=== PATIENT | female | born 1975 | race Caucasian/White ===

== ENCOUNTER 2020-02-10 13:38 | Emergency (ER) | payer BC, SELFPAY ==
[2020-02-10 13:58] VITALS: BP 121/72; PULSE 78; RESP 19; TEMP 36.9; O2SAT 97; BMI 36.2
--- NOTE | 2020-02-10 14:40 | HMH.EDUTC ---
[facility] [place] Clinical Impression: Viral syndrome Disposition: Home, Self-Care Condition on Discharge: Good Instructions: DI for Viral Syndrome, Preventing the Spread of Coronavirus Discharge Instructions Additional Instructions: Drink plenty of fluids. Take tylenol or ibuprofen for pain or fever. Take the medications as directed. Follow up with your regular doctor. GO TO THE ER FOR ANY WORSENING SYMPTOMS FOLLOW THE DIRECTIONS ON THE COVID-19 HAND OUT THAT WE GAVE YOU REGARDING SELF-ISOLATION UNTIL YOU KNOW YOUR COVID-19 RESULTS Prescriptions: Ondansetron [Zofran 4mg ODT] 4 mg PO Q8HP PRN #12 tab.rapdis PRN Reason: Nausea Transmission Status: Received by [facility] # Azithromycin [Z-Steve 250mg Tab*] 250 mg PO UD DOSE PK #6 tab Transmission Status: Received by [facility] # Referrals: Gio Gunter [Primary Care Provider] - Forms: Work/School Release Time of Disposition: 14:44 Medical Decision Making - Medical Records Medical records reviewed: No: I reviewed the patient's medical records. - Bereket Inquiry Pt receiving controlled substance: No Vital Signs: 02/10/20 13:58 02/10/20 14:51 Temperature 98.4 F 98.4 F Temperature Source Oral Pulse Rate 78 Pulse Rate [Right Brachial] 78 Respiratory Rate 19 19 Blood Pressure 121/72 Blood Pressure [Right Arm] 121/72 Blood Pressure Mean [Right Arm] 88 Blood Pressure Source [Right Arm] Automatic Cuff Blood Pressure Position [Right Arm] Sitting 02 Sat by Pulse Oximetry 97 Oxygen Delivery Method Room Air - Lab Data Lab results reviewed: Yes: I reviewed the patient's lab results. Orders (Tests/Meds): ED MEDICATIONS Discontinued Medications Generic Name Dose Route Start Last Admin Trade Name Freq PRN Reason Stop Dose Admin Ondansetron HCl 4 mg 02/10/20 14:43 Zofran 4mg Odt SL 02/10/20 14:44 ONCE ONE ORDERS Category Date Time Status Coronavirus 19 Swab (OUTPT) Routine Lab 02/10/20 14:08 Received [facility] [place] H[place] - General Stated complaint: nausea, diarrhea, mucsle pain Time Seen by Provider: 02/10/20 14:40 Mode of Arrival: Ambulatory Source of Information: Patient Limitations: No Limitations Description of Symptoms (Recalled from Triage Doc. by RN): PATIENT C/O COUGH, BODY ACHES, FATIGUE, NAUSEA, DIARRHEA SINCE YESTERDAY HEENT Symptoms (Recalled from RN notes): No Resp Symptoms (Recalled from RN notes): Yes Skin Symptoms (Recalled from RN notes): No MS Symptoms (Recalled from RN notes): No Functional Status (Recalled from RN notes): WNL - History of Present Illness Provider Complaint: She c/o chilling, body aches, and feeling very bad since yesterday morning. 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 - Related Data Home Medications Medication Instructions Recorded Confirmed Sertraline HCl [Zoloft 100mg 100 mg PO DAILY 02/10/20 02/10/20 tablet] Previous Rx's Medication Instructions Recorded Azithromycin [Z-Steve 250mg Tab*] 250 mg PO UD DOSE PK #6 tab 02/10/20 Ondansetron [Zofran 4mg ODT] 4 mg PO Q8HP PRN #12 tab.rapdis 02/10/20 Allergies Allergy/AdvReac Type Severity Reaction Status Date / Time doxycycline Allergy Verified 08/05/18 18:03 - Worker's Comp Is this a Worker's Comp case?: No [facility] History - Hepatitis A Screen Drug use history?: No High risk sexual behaviors?: No History of sexually transmitted infection?: No Currently employed?: No Childcare worker?: No Do you have indoor plumbing?: Yes Do you have electricity?: Yes Attestation statement:: This patient has been screened for Hepatitis A risk factors. I have reviewed the patient's past medical history: Yes Laterality Cases: Bilateral: Tonsillectomy - Social History Alcohol Intake: never Occupational Status: other ROS Obtained: Yes All systems reviewed & no
[2020-02-10 14:51] VITALS: BP 121/72; PULSE 78; RESP 19; TEMP 36.9; O2SAT 97
[2020-02-10 19:02] LABS: UTC Strep Screen (Rapid) Negative (Negative)
== END 2020-02-10 14:55 | disposition home or self-care (01) ==
PROVIDERS: Emergency Provider Nurse Practitioner Family; PCP Family Medicine
DX: B34.9 Viral infection, unspecified (principal); Z20.828 Contact with and (suspected) exposure to other viral communicable diseases; F33.1 Major depressive disorder, recurrent, moderate; Z79.899 Other long term (current) drug therapy; Z90.09 Acquired absence of other part of head and neck
CPT/HCPCS: 87880; 99202; U0003

== ENCOUNTER 2021-02-22 18:39 | Emergency (ER) | payer BC, SELFPAY ==
[2021-02-22 21:57] VITALS: BP 0/0; PULSE 0; RESP 0; TEMP -17.7; TEMP 0
== END 2021-02-22 21:58 | disposition left against medical advice (07) ==
LOC: UTC 18:49
PROVIDERS: Emergency Provider Physician Assistant; PCP Family Medicine
DX: Z53.21 Procedure and treatment not carried out due to patient leaving prior to being seen by health care provider (principal)

== ENCOUNTER 2021-06-14 14:21 | Emergency (ER) | payer BC, SELFPAY ==
[2021-06-14 16:46] VITALS: BP 113/76; PULSE 74; RESP 20; TEMP 36.5; O2SAT 100; BMI 35.3
[2021-06-14 17:13] LABS: UTC Influenza A Antigen Negative (Negative)
[2021-06-14 17:14] LABS: UTC Strep Screen (Rapid) Negative (Negative)
[2021-06-14 17:14] LABS: UTC Influenza B Antigen Negative (Negative)
--- NOTE | 2021-06-14 17:24 | HMH.EDUTC ---
[facility] [place] Disposition Clinical Impression: Bronchitis Pharyngitis Qualifiers: Pharyngitis/tonsillitis etiology: unspecified etiology Qualified Code(s): J02.9 - Acute pharyngitis, unspecified Disposition: Home, Self-Care Condition on Discharge: Good Instructions: DI for Strep Throat, DI for COVID-19 (Suspected or Confirmed ), Preventing the Spread of Coronavirus Discharge Instructions Additional Instructions: Drink plenty of fluids. Take tylenol or ibuprofen for pain or fever. Take the medications as directed. Follow up with your regular doctor. GO TO THE ER FOR ANY WORSENING SYMPTOMS Quarantine until you know the results of your covid-19 test. If it is positive, the health department should call you and give you further instructions about your length of Quarantine and other things. Notify your school or workplace of your results and follow their instructions regarding return to work/school. The cough medication (promethazine dm) will make you drowsy, so don't drive or operate heavy machinery after taking it. Prescriptions: Promethazine/Dextromethorphan [Promethazine-Dm Syrup] 5 ml PO Q6HP PRN #240 ml PRN Reason: Cough Transmission Status: Received by [id number] methylPREDNISolone [Medrol] 4 mg PO DIRECTED 6 Days #21 packet Transmission Status: Received by [id number] Azithromycin [Z-Steve 250mg Tab*] 250 mg PO UD DOSE PK #6 tab Transmission Status: Received by [id number] Referrals: Gio Gunter JR, MD [Primary Care Provider] - Time of Disposition: 17:39 Medical Decision Making - Medical Records Medical records reviewed: No: I reviewed the patient's medical records. - Bereket Inquiry Pt receiving controlled substance: No Vital Signs: 06/14/21 16:46 06/14/21 17:48 Temperature 97.7 F 97.7 F Temperature Source Temporal Artery Scan Pulse Rate 74 Pulse Rate [Left] 74 Respiratory Rate 20 18 Blood Pressure 113/76 Blood Pressure [Right Arm] 113/76 Blood Pressure Mean [Right Arm] 88 02 Sat by Pulse Oximetry 100 - Lab Data Lab results reviewed: Yes: I reviewed the patient's lab results. Lab Results 06/14/21 16:48: Strep Scn [facility] Negative 06/14/21 17:02: Influenza Type A Ag Negative, Influenza Type B Ag Negative 06/14/21 17:44: Chlamy pneumoniae PCR Not detected, Adenovirus (PCR) Not detected, B. pertussis DNA (PCR) Not detected, Coronavirus OC43 (PCR) Not detected, Coronavirus HKU1 (PCR) Not detected, Coronavirus 229E (PCR) Not detected, SARS-CoV-2 (PCR) Not detected, Coronavirus NL63 (PCR) Not detected, Human Metapneumovir PCR Not detected, Influenza A (H1) PCR Not detected, Influ A (H1N1/09) PCR Not detected, Influenza A (H3) PCR Not detected, Influenza Type A (PCR) Not detected, Influenza Type B (PCR) Not detected, M. pneumoniae (PCR) Not detected, Parainfluenza 1 (PCR) Not detected, Parainfluenza 2 (PCR) Not detected, Parainfluenza 3 (PCR) Not detected, Parainfluenza 4 (PCR) Not detected, RSV (PCR) Not detected, Entero/Rhino (PCR) Detected A Orders (Tests/Meds): ORDERS Category Date Time Status Strep Screen Confirmation Routine Micro 06/14/21 16:48 Received [facility] [place] HPI - General Stated complaint: sore throat,cough Time Seen by Provider: 06/14/21 17:24 Mode of Arrival: Ambulatory Source of Information: Patient Limitations: No Limitations Description of Symptoms (Recalled from Triage Doc. by RN): pt c/o fever, chills, congestion, sore throat, cough, myalgia and a DOWNEY. x2 days. pt wants a flu/strep/covid swab. HEENT Symptoms (Recalled from RN notes): Yes (congestion, sore throat and DOWNEY) Resp Symptoms (Recalled from RN notes): Yes (cough) Skin Symptoms (Recalled from RN notes): No MS Symptoms (Recalled from RN notes): No Functional Status (Recalled from RN notes): wnl - History of Present Illness Provider Complaint: She states that for the past 3 days she has had body aches, a cough, chest congestion and a very sore throat.
[2021-06-14 17:48] VITALS: BP 113/76; PULSE 74; RESP 18; TEMP 36.5
[2021-06-14 17:54] LABS: Adenovirus,PCR Not Detected (NotDetected); Bordetella Pertussis Not Detected (NotDetected); Chlamydophila Pneumoniae, PCR Not Detected (NotDetected); Coronavirus 19, PCR Not Detected (NotDetected); Coronavirus 229E Not Detected (NotDetected); Coronavirus NL63 Not Detected (NotDetected); Coronavirus OC43 Not Detected (NotDetected); Coronovirus HKU1,PCR Not Detected (NotDetected); Human Metapneumovirus Not Detected (NotDetected); Influenza A, PCR Not Detected (NotDetected); Influenza AH1, 2009 Not Detected (NotDetected); Influenza AH1, PCR Not Detected (NotDetected); Influenza AH3,PCR Not Detected (NotDetected); Influenza B, PCR Not Detected (NotDetected); Mycoplasma Pneumoniae, PCR Not Detected (NotDetected); Parainfluenza 1, PCR Not Detected (NotDetected); Parainfluenza 2, PCR Not Detected (NotDetected); Parainfluenza 3, PCR Not Detected (NotDetected); Parainfluenza 4, PCR Not Detected (NotDetected); Respiratory Syncytial Virus Not Detected (NotDetected)
[2021-06-14 19:40] LABS: Rhinovirus/Enterovirus Detected (NotDetected)
== END 2021-06-14 17:50 | disposition home or self-care (01) ==
PROVIDERS: Emergency Provider Nurse Practitioner Family; PCP Family Medicine
DX: J20.9 Acute bronchitis, unspecified (principal); Z20.822 Contact with and (suspected) exposure to COVID-19
CPT/HCPCS: 87581; 87632; 87798; 87804; 87880; 99203; C9803; G0463; U0003; U0005

== ENCOUNTER 2021-09-07 13:26 | Emergency (ER) | payer BC, SELFPAY ==
[2021-09-07 15:10] VITALS: BP 109/72; PULSE 93; RESP 16; TEMP 36.9; O2SAT 99; BMI 37.2
--- NOTE | 2021-09-07 15:39 | HMH.EDUTC ---
[facility] [place] Impression: Sinusitis Qualifiers: Sinusitis location: unspecified location Chronicity: acute Recurrence: non-recurrent Qualified Code(s): J01.90 - Acute sinusitis, unspecified Disposition: Home, Self-Care Condition on Discharge: Good Instructions: DI for Sinusitis Additional Instructions: Drink plenty of fluids. Take tylenol or ibuprofen for pain or fever. Take the medications as directed. Follow up with your regular doctor. GO TO THE ER FOR ANY WORSENING SYMPTOMS Don't start the oral steroids until tomorrow, since you had the shot here today. Prescriptions: Ondansetron [Zofran 4mg ODT] 4 mg PO Q8HP PRN #20 tab PRN Reason: Nausea Transmission Status[id number] methylPREDNISolone [Medrol] 4 mg PO DIRECTED 6 Days #21 packet Transmission Status: [id number] Azithromycin [Z-Steve 250mg Tab*] 250 mg PO UD DOSE PK #6 tab Transmission Status: [id number] Referrals: Gio Gunter JR, MD [Primary Care Provider] - Forms: Work/School Release Time of Disposition: 15:57 Medical Decision Making - Medical Records Medical records reviewed: No: I reviewed the patient's medical records. - Bereket Inquiry Pt receiving controlled substance: No Vital Signs: 09/07/21 15:10 09/07/21 15:58 Temperature 98.4 F 98.4 F Temperature Source Oral Pulse Rate 93 H Pulse Rate [Right Brachial] 93 H Respiratory Rate 16 16 Blood Pressure 109/72 L Blood Pressure [Right Arm] 109/72 L Blood Pressure Mean [Right Arm] 84 Blood Pressure Source [Right Arm] Automatic Cuff Blood Pressure Position [Right Arm] Sitting 02 Sat by Pulse Oximetry 99 Oxygen Delivery Method Room Air - Lab Data Lab results reviewed: Yes: I reviewed the patient's lab results. Orders (Tests/Meds): ED MEDICATIONS Discontinued Medications Generic Name Dose Route Start Last Admin Trade Name Freq PRN Reason Stop Dose Admin Ceftriaxone Sodium 1 gm 09/07/21 15:48 09/07/21 15:57 Ceftriaxone 1gm Vial IM 09/07/21 15:49 1 gm ONCE ONE Administration Lidocaine HCl 0 ml 09/07/21 15:48 09/07/21 15:57 Lidocaine 1% 5ml Pf Vial IM 09/07/21 15:49 2 ml ONCE ONE Administration Methylprednisolone Sodium Succinate 125 mg 09/07/21 15:48 09/07/21 15:57 Methylprednisolone Sod Succ 125mg Vial IM 09/07/21 15:49 125 mg ONCE ONE Administration [facility] [place] - General Stated complaint: dizziness, fever, h/a, congestion Time Seen by Provider: 09/07/21 15:39 Mode of Arrival: Ambulatory Source of Information: Patient Limitations: No Limitations Description of Symptoms (Recalled from Triage Doc. by RN): PATIENT C/O DIZZINESS, CONGESTION, FACE PAIN, HEADACHE, AND RIGHT ARM PAIN HEENT Symptoms (Recalled from RN notes): Yes Resp Symptoms (Recalled from RN notes): No Skin Symptoms (Recalled from RN notes): No MS Symptoms (Recalled from RN notes): No Functional Status (Recalled from RN notes): WNL - History of Present Illness Provider Complaint: She states that for the past 3 days she has had worsening sinus congestion and sinus drainage. She thinks that she has a sinus infection. - Related Data Previous Rx's Medication Instructions Recorded Azithromycin [Z-Steve 250mg Tab*] 250 mg PO UD DOSE PK #6 tab 09/07/21 Ondansetron [Zofran 4mg ODT] 4 mg PO Q8HP PRN #20 tab 09/07/21 methylPREDNISolone [Medrol] 4 mg PO DIRECTED 6 Days #21 09/07/21 packet Allergies Allergy/AdvReac Type Severity Reaction Status Date / Time doxycycline Allergy Verified 08/05/18 18:03 - Worker's Comp Is this a Worker's Comp case?: No [facility] History - Hepatitis A Screen Drug use history?: No High risk sexual behaviors?: No History of sexually transmitted infection?: No Currently employed?: No Childcare worker?: No Do you have indoor plumbing?: Yes Do you have electricity?: Yes Attestation statement:: This patient has b
[2021-09-07 15:58] VITALS: BP 109/72; PULSE 93; RESP 16; TEMP 36.9; O2SAT 99
== END 2021-09-07 16:10 | disposition home or self-care (01) ==
PROVIDERS: Emergency Provider Nurse Practitioner Family; PCP Family Medicine
DX: J01.90 Acute sinusitis, unspecified (principal)
CPT/HCPCS: 96372; 99213; G0463; J0696

== ENCOUNTER 2022-02-27 16:52 | Emergency (ER) | payer BC, SELFPAY ==
[2022-02-27 17:10] VITALS: BP 120/66; PULSE 80; RESP 18; TEMP 36.7; O2SAT 98; BMI 35.0
--- NOTE | 2022-02-27 17:19 | EXP.UTC ---
Discharge Plan Disposition Patient Disposition: Home, Self-Care Condition: Good Prescriptions Prescriptions: New retmjwwvdwzqohz-npwusdffk-WV [Bromfed DM] 2-30-10 mg/5 mL syrup 10 ml PO Q6H PRN (Reason: cold symptoms) Qty: 200 0RF No Action sertraline 50 mg tablet 150 mg PO DAILY Label Comments: TAKE 3 TABLETS BY MOUTH ONCE DAILY Referrals Follow up/Referrals: Gio Gunter JR, MD [Primary Care Provider] - See instructions Clinical Impressions Clinical Impression: Acute upper respiratory infection Instructions Patient Instructions: DI for Viral Upper Respiratory Infection -- Adult Discharge ED Provider: Anahy Clark [facility] [place] General Stated complaint: Sore throat Time Seen by Provider: 02/27/22 17:19 History of Present Illness Provider Complaint: Pt relates that for the last few days she has had a cough and sore throat. She states she has not taken anything for her symptoms. She denies any reflux symptoms or taking anything for her symptoms. Pt states she had done 3 test for Covid and they were all negative. Related Data Home Medications Medication Instructions Recorded Confirmed sertraline 50 mg tablet 150 mg PO DAILY Anxiety 02/27/22 02/27/22 Previous Rx's Medication Instructions Recorded wgirvamnsicbzcp-hsgerefiqgjgdim-MK 10 ml PO Q6H PRN cold symptoms 02/27/22 2 mg-30 mg-10 mg/5 mL oral syrup #200 mL (Bromfed DM) Allergies Allergy/AdvReac Type Severity Reaction Status Date / Time doxycycline Allergy Verified 08/05/18 18:03 [facility] Medical History (Updated 02/27/22 @ 17:31 by Anahy Clark APRN) Anxiety Depression Ovarian cyst Surgical History (Updated 02/27/22 @ 17:19 by Kyara Mejias RN) History of section History of cholecystectomy History of tonsillectomy Hx of arthroscopy of knee Social History Smoking Status: Unknown if ever smoked alcohol intake: never current occupational status: other Travel in the last 8 weeks: None ROS Obtained: Yes All systems reviewed & no additional complaints except as documented Constitutional Constitutional: Reports headache(s) ENT Ears, Nose, Mouth, and Throat: Reports headache(s), Reports post nasal drip, Reports sinus pressure and Reports sore throat Cardiovascular Cardiovascular: Reports system reviewed and no additional complaints, except as documented Respiratory Respiratory: Reports as per HPI and Reports cough Comments: states that she will occasionally cough up something but she does not look at it. Gastrointestinal Gastrointestingal: Reports system reviewed and no additional complaints, except as documented Musculoskeletal Musculoskeletal: Reports system reviewed and no additional complaints, except as documented Integumentary/Breasts Skin/Breast: Reports system reviewed and no additional complaints, except as documented Neurologic Neurologic: Reports headache(s) Physical Exam General General appearance: alert and in no apparent distress Eye Eye exam: Present normal appearance ENT ENT exam: Present mucous membranes moist Expanded ENT Exam External ear exam: Present normal external inspection Nasal speculum exam: Bilateral: normal Mouth exam: Present normal external inspection Teeth exam: Present normal inspection Throat exam: Present other Comment: post nasal drainage noted Chest Chest inspection: Present normal inspection Respiratory Respiratory exam: Present normal lung sounds bilaterally and respiratory distress Cardiovascular Cardiovascular exam: Present regular rate and normal rhythm Abdominal Exam Abdominal exam: Present soft and normal bowel sounds Neurological Exam Neurological exam: Present alert Psychiatric Psychiatric exam: Present normal affect and normal mood Medical Decision Making Bereket Inquiry Pt receiving controlled substance: No Bereket was queried for this patient: No
[2022-02-27 17:30] VITALS: BP 120/66; PULSE 80; RESP 18; TEMP 36.7; O2SAT 98
[2022-02-27 17:40] LABS: UTC Strep Screen (Rapid) Negative (Negative)
== END 2022-02-27 17:34 | disposition home or self-care (01) ==
PROVIDERS: Nurse Practitioner; Emergency Provider Nurse Practitioner Family; PCP Family Medicine
DX: J06.9 Acute upper respiratory infection, unspecified
CPT/HCPCS: 87880; 99212; G0463

== ENCOUNTER 2022-10-13 12:11 | Emergency (ER) | payer OTHER, BC, SELFPAY ==
[2022-10-13] VITALS (7 sets, daily range): BP systolic 93–138; BP diastolic 57–82; PULSE 71–92; RESP 17–18; TEMP 36.8–37; O2SAT 97–99; BMI 40.7
--- NOTE | 2022-10-13 12:04 | ECG_ITS ---
APPROVED REPORT Exam: Resting ECG HR:75 bpm ECG Measurements Heart Rate 75 AXES OK 174 P 56 QRSd 76 QRS 45 QT 345 T 44 QTc 374 Conclusion SINUS RHYTHM NORMAL ECG UNCONFIRMED REPORT Electronically signed by : Tim Manzo MD 10/15/2022 14:25:35
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
--- NOTE | 2022-10-13 12:10 | PC.NURSE ---
EKG performed at this time
--- NOTE | 2022-10-13 12:13 | PC.NURSE ---
radiology at bedside
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
--- NOTE | 2022-10-13 12:18 | PC.NURSE ---
at bedside for pt evaluation
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
--- NOTE | 2022-10-13 12:31 | PC.NURSE ---
pt to CT scan via stretcher
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
[2022-10-13 12:38] LABS: Basophils % 0.7 % (0.1-2.0); Chloride 105 mmol/L (98-107); Eosinophils # 0.2 K/mm3 (0.0-0.4); Hematocrit 41.4 % (37.0-47.0); Hemoglobin 13.6 g/dL (12.2-16.2); Lymphocytes # 1.7 K/mm3 (0.7-4.5); Mean Corpuscular Hemoglobin 30.4 pg (27.0-31.2); Mean Corpuscular Volume 92.3 fl (81-99); Mean Platelet Volume 7.7 fl (7.4-10.4); Monocytes # 0.2 K/mm3 (0.1-1.0); Monocytes % 4.6 % (1.7-9.3); Neutrophils # 3.2 K/mm3 (1.8-7.8); Neutrophils % 60.7 % (37.0-80.0); Platelet Count 201 K/mm3 (142-424); Red Blood Count 4.48 M/mm3 (4.20-5.40); Red Cell Distribution Width 13.8 % (11.5-17.5); White Blood Count 5.3 K/mm3 (4.8-10.8)
[2022-10-13 12:39] LABS: Potassium 4.3 mmoL/L (3.5-5.1); Sodium 136 mmol/L (136-145)
[2022-10-13 12:41] LABS: Activated Partial Thrombo Time 26.1 seconds (22.8-30.6); Alanine Aminotransferase 27 U/L (12-78); Alkaline Phosphatase 83 U/L (38-126); Aspartate Amino Transferase 40 U/L (14-36); Bilirubin,Total 0.5 mg/dl (0.2-1.3); Blood Urea Nitrogen 15 mg/dl (7-17); Creatinine Clearance Estimated 174 mL/min (50-200); Estimated Glomerular Filt Rate 90 ml/min (>60); GFR (African American) 109 ML/MIN (>60); INR 0.86 (0.9-1.1); Prothrombin Time 9.4 seconds (10.1-12.5)
[2022-10-13 12:42] LABS: Albumin Level 4.4 g/dl (3.5-5.0); Albumin/Globulin Ratio 1.5 (1.1-1.8); Anion Gap 11.3 mEq/L (5-15); Calcium 8.5 mg/dl (8.4-10.2); Carbon Dioxide 24 mmol/L (22.0-30.0); Globulin 2.9 g/dL (1.3-3.2); Glucose 108 mg/dl (74-100); Total Protein,Serum 7.3 g/dl (6.3-8.2)
[2022-10-13 12:53] LABS: Troponin I < 0.01 ng/ml (0.00-0.034)
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
== END 2022-10-13 14:47 | disposition home or self-care (01) ==
PROVIDERS: Emergency Provider Emergency Medicine; PCP Family Medicine
DX: S01.511A Laceration without foreign body of lip, initial encounter (principal); R51.9 Headache, unspecified; M79.604 Pain in right leg; M79.605 Pain in left leg; V79.49XA Driver of bus injured in collision with other motor vehicles in traffic accident, initial encounter
CPT/HCPCS: 12013; 70450; 70486; 70496; 70498; 71045; 71275; 72125; 72128; 72131; 72170; 73590; 74174; 80053; 84484; 85025; 85610; 85730; 93005; 96360; 96374; 96375; 99285; J2405; Q9967

== ENCOUNTER 2022-10-15 10:51 | Emergency (ER) | payer OTHER, BC, SELFPAY ==
[2022-10-15 10:55] VITALS: BP 129/70; PULSE 88; RESP 20; TEMP 36.8; O2SAT 96; BMI 39.1
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
[2022-10-15 13:06] VITALS: BP 129/70; PULSE 88; RESP 20; TEMP 36.8; O2SAT 96
== END 2022-10-15 13:09 | disposition home or self-care (01) ==
PROVIDERS: Emergency Provider Physician Assistant; PCP Family Medicine
DX: S80.01XA Contusion of right knee, initial encounter (principal); V79.49XA Driver of bus injured in collision with other motor vehicles in traffic accident, initial encounter
CPT/HCPCS: 73562; 99212; 99214; G0463

== ENCOUNTER 2023-03-13 11:52 | Emergency (ER) | payer BC, SELFPAY ==
[2023-03-13 12:00] VITALS: BP 134/87; PULSE 101; RESP 18; TEMP 36.9; O2SAT 98; BMI 41.0
--- NOTE | 2023-03-13 12:34 | EXP.UTC ---
Discharge Plan Disposition Patient Disposition: Home, Self-Care Condition: Good Prescriptions Prescriptions: New polymyxin B sulf-trimethoprim [Polytrim] 10,000 unit- 1 mg/mL drops 2 drp ophthalmic (eye) Q6H 7 Days Qty: 10 0RF Rx Instructions: both eyes while awake; do not exceed 6 doses in 24 hours ondansetron HCl 4 mg tablet 4 mg PO Q8H 4 Days Qty: 12 0RF No Action sertraline 50 mg tablet 150 mg PO DAILY Patient Comments: TAKE 3 TABLETS BY MOUTH ONCE DAILY meloxicam 7.5 mg tablet 7.5 mg PO DAILY Patient Comments: TAKE 1 TABLET BY MOUTH ONCE DAILY aripiprazole 5 mg tablet 5 mg PO DAILY Patient Comments: TAKE 1 TABLET BY MOUTH AT BEDTIME amitriptyline 25 mg tablet 25 mg PO DAILY Patient Comments: TAKE 1 TABLET BY MOUTH ONCE DAILY AT BEDTIME Referrals Follow up/Referrals: Femi Soriano MD [Primary Care Provider] - See instructions Activity Restrictions/Add. Instructions Additional Instructions/Restrictions: *Monitor Temp, Over the counter Motrin or Tylenol as directed/as needed Tylenol every 4 hours and Motrin every 6 hours (as long as your family doctor has told you that you can take it) for fever or pain. and straight to ER if unable to lower temp less than 101.0 after medication given *Warm salt water gargles may help to soothe the throat *Throat Lozenges? *Warm fluids like tea with honey may help to soothe the throat? *Sleep elevated *Humidifier/Vaporizer Follow up IMMEDIATELY for new or worsening symptoms or no Noticeable improvement over the next 48-72 hours. 911 for difficulty breathing or swallowing You were tested for today for COVID19 your test result should be back in the next 24 hours You may check your results on the [facility] [place]: online [employer] [facility] for your results Clinical Impressions Clinical Impression: Conjunctivitis Qualifiers: Conjunctivitis type: unspecified Laterality: left Qualified Code(s): H10.9 - Unspecified conjunctivitis Stand Alone Forms Stand Alone Forms: Work/School Release Instructions Patient Instructions: DI for Viral Syndrome, Nausea and Vomiting-Adult, Diarrhea Discharge ED Provider: Noemy Boykin [place] HPI General Stated complaint: nausea, diarrhea, cough, Lt eye drainage Mode of Arrival: Ambulatory Source of Information: Patient Limitations: No Limitations Time Seen by Provider: 03/13/23 12:34 Description of Symptoms (Recalled from Triage Doc. by RN): Covid/ flu symptoms. Watery and crusty left eye. 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 States that she has been having cough, body aches and N/V/D States that she also thinks she may have pink eye States that she has been having drainage and matting in her left eye so today she came in to get checked Related Data Home Medications Medication Instructions Recorded Confirmed sertraline 50 mg tablet 150 mg PO DAILY Anxiety 02/27/22 03/13/23 aripiprazole 5 mg tablet 5 mg PO DAILY Depression 10/15/22 03/13/23 meloxicam 7.5 mg tablet 7.5 mg PO DAILY WRIST PAIN 10/15/22 10/15/22 amitriptyline 25 mg tablet 25 mg PO DAILY Depression 03/13/23 03/13/23 Previous Rx's Medication Instructions Recorded ondansetron HCl 4 mg tablet 4 mg PO Q8H 4 days #12 tabs 03/13/23 polymyxin B sulfate 10,000 2 drp ophthalmic (eye) Q6H 7 days 03/13/23 unit-trimethoprim 1 mg/mL eye #10 mL drops (Polytrim) Allergies Allergy/AdvReac Type Severity Reaction Status Date / Time doxycycline Allergy Verified 03/13/23 12:16 Worker's Comp Is this a Worker's Comp case?: No [facility] Disclaimer: The information co
[2023-03-13 12:39] LABS: UTC Influenza A Antigen Negative (Negative)
[2023-03-13 12:40] LABS: UTC Influenza B Antigen Negative (Negative)
[2023-03-13 12:57] VITALS: BP 134/87; PULSE 101; RESP 18; TEMP 36.9; O2SAT 98
== END 2023-03-13 12:57 | disposition home or self-care (01) ==
PROVIDERS: Emergency Provider Nurse Practitioner; PCP Family Medicine
DX: H66.92 Otitis media, unspecified, left ear (principal); F41.9 Anxiety disorder, unspecified; F32.A Depression, unspecified
CPT/HCPCS: 87635; 87804; 99212; 99214; G0463

== ENCOUNTER → 2023-03-30 09:51 | Outpatient (CLI) | payer OTHER, SELFPAY ==
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
--- NOTE | 2023-03-30 10:09 | IR_ITS ---
FINAL REPORT CLINICAL HISTORY: KNEE PAIN Rt knee arthrogram before MR Fluoro TIme: 0:45min 5.12 mGy FINDINGS: Arthrogram Right knee injection for MRI arthrogram HISTORY: Right knee pain. PROCEDURE: After informed consent was obtained, a time-out was performed. Utilizing local anesthesia and sterile technique, with direct fluoroscopic guidance, access to the joint was obtained . A small amount of contrast was injected to confirm needle tip location. Additional gadolinium contrast was injected. IMPRESSION: Status post injection for MRI arthrogram without immediate complication. Please see MRI report. Fluoroscopy time: 0.45 minutes Radiation exposure in reference air kerma: 5.12 Films reviewed , interpreted and dictated by Dr. De La Paz Transcribed by Yuri Cantu PA-C. Reviewed, Interpreted and Dictated by Vijay De La Paz III, MD Transcribed by LETHA Horne Authenticated and [facility]
== END ==
PROVIDERS: PCP Orthopaedic Surgery; Visit Provider Orthopaedic Surgery
DX: M25.561 Pain in right knee (principal)
CPT/HCPCS: 73580; 73722; A9576; Q9967

== ENCOUNTER 2023-10-03 11:40 | Emergency (ER) | payer BC, SELFPAY ==
[2023-10-03 12:05] VITALS: BP 136/66; PULSE 96; RESP 19; TEMP 36.8; O2SAT 98; BMI 42.2
--- NOTE | 2023-10-03 12:24 | ED_ITS ---
Discharge Plan Disposition Patient Disposition: Home, Self-Care Condition: Good Prescriptions Prescriptions: New azithromycin [Zithromax Z-Steve] 250 mg tablet See Rx Instructions .ROUTE .COMPLEX 5 Days Qty: 6 0RF Rx Instructions: For 250 mg dose pack: take 500 mg today (day 1), then 250 mg for 4 days (days 2-5) prednisone 20 mg tablet 20 mg PO BID 5 Days Qty: 10 0RF benzonatate 100 mg capsule 100 mg PO TID PRN (Reason: cough) Qty: 30 0RF guaifenesin [Mucinex] 600 mg tablet extended release 12hr 1,200 mg PO BID PRN (Reason: cough) Qty: 20 0RF Proair Digihaler 90 mcg/actuation aero powdr breath act w/sensor 1 - 2 inh inhalation Q6H PRN (Reason: shortness of breath or wheezing) Qty: 1 0RF No Action sertraline 50 mg tablet 150 mg PO DAILY Patient Comments: TAKE 3 TABLETS BY MOUTH ONCE DAILY aripiprazole 5 mg tablet 5 mg PO DAILY Patient Comments: TAKE 1 TABLET BY MOUTH AT BEDTIME amitriptyline 25 mg tablet 25 mg PO DAILY Patient Comments: TAKE 1 TABLET BY MOUTH ONCE DAILY AT BEDTIME Referrals Follow up/Referrals: Provider,Referral, MD [Primary Care Provider] - See instructions Activity Restrictions/Add. Instructions Additional Instructions/Restrictions: * Start antibiotic today. Be sure to complete entire prescription even if feeling better * Monitor temp. Tylenol every 4 hours as needed and / or ibuprofen every 6 hours as needed ( As long as your primary care physician has told you that it ok to take both. For fever/aches/pains ER if no less than 101 despite Tylenol or Motrin * Humidifier/vaporizer or hot steamy shower * Inhaler every 4-6 hours as needed like we discussed. If unsure how to use it, ask pharmacist to demonstrate how. Should help open airways and improve cough, wheezing, and shortness of breath * Mucinex during the day for your cough and cough suppressant only at night. Be sure to drink lots of water. Insurance may not cover a prescriptions for mucinex. Might be cheaper to get 400mg tablets and take 2 tablet in the morning, mid-day and evening with lots of water. *Tessalon Perles will not cause drowsiness but use at bedtime to help stop cough so that you may get some rest. *Start steroid tomorrow Helps with inflammation therefore, cough and wheezing. Follow directions on the package. Reviewed side effects. Patient reports taking them before. Follow up IMMEDIATELY for new or worsening of symptoms OR no noticeable improvement over the next 48-72 hours. 911 immediately for any life threatening symptoms such as chest pain or difficulty breathing Clinical Impressions Clinical Impression: Bronchitis Instructions Patient Instructions: Acute Bronchitis, Cough Discharge ED Provider: Noemy Boykin [facility] HPI General Stated complaint: congestion, cough Mode of Arrival: Ambulatory Source of Information: Patient Limitations: No Limitations Time Seen by Provider: 10/03/23 12:25 Description of Symptoms (Recalled from Triage Doc. by RN): Pt's symptoms are cough, congestion, wheezing, and rib pain with cough. HEENT Symptoms (Recalled from RN notes): Yes Resp Symptoms (Recalled from RN notes): No Skin Symptoms (Recalled from RN notes): No MS Symptoms (Recalled from RN notes): No Functional Status (Recalled from RN notes): n/a History of Present Illness Provider Complaint: Patient states that she feels like she may have bronchitis States that she has been having wheezing at times, cough, congestion and pain in ribs at times with coughing States that this morning she started with pain in her left ear and coughing worse at times when she is up moving around so she came in to get checked Related Data Home Medications Medication Instructions Recorded Confirmed sertraline 50 mg tablet 150 mg PO DAILY Anxiety 02/27/22 10/03/23 aripiprazole 5 mg tablet 5 mg PO DAILY Depression 10/15/22 10/03/23 amitriptyline 25 mg tablet 25 mg PO DAILY Depression 03/13/23 10/03/23 Previous Rx's Medication Instructions Recorded albuterol sulfate 90 mcg/actuation 1 - 2 inh inhalation Q6H PRN 10/03/23 breath activated powder shortness of breath or wheezing #1 inhaler,sensor (Proair Digihaler) ea azithromycin 250 mg tablet See Rx Instructions PO .COMPLEX 5 10/03/23 (Zithromax Z-Steve) days #6 tabs benzonatate 100 mg capsule 100 mg PO TID PRN cough #30 caps 10/03/23 guaifenesin 600 mg tablet, 1,200 mg (2 x 600 mg) PO BID PRN 10/03/23 extended release 12 hr (Mucinex) cough #20 tabs prednisone 20 mg tablet 20 mg PO BID 5 days #10 tabs 10/03/23 Allergies Allergy/AdvReac Type Severity Reaction Status Date / Time doxycycline Allergy Verified 10/03/23 12:19 Worker's Comp Is this a Worker's Comp case?: No [facility] Disclaimer: The information contained in this section may have been updated after the patient was seen, as this information can be updated by other users. Medical History (Updated 10/03/23 @ 12:33 by Noemy Boykin APRN) Ovarian cyst Depression Anxiety Surgical History Hx of arthroscopy of knee History of tonsillectomy History of section History of cholecystectomy Social History Smoking Status: Unknown if ever smoked alcohol intake: never current occupational status: other Travel in the last 8 weeks: None ROS Obtained: Yes All systems reviewed & no additional complaints except as documented and Yes Systems reviewed as appropriate & no additional complaints except as documented ENT Ears, Nose, Mouth, and Throat: Reports system reviewed and no additional complaints, except as documented, Reports as per HPI, Reports otalgia, Reports nasal congestion and Reports sinus pressure Cardiovascular Cardiovascular: Reports system reviewed and no additional complaints, except as documented and Reports as per HPI Respiratory Respiratory: Reports system reviewed and no additional complaints, except as documented, Reports as per HPI, Denies shortness of breath, Reports chest congestion, Reports cough and Reports pain with cough (at times) Physical Exam General General appearance: alert and in no apparent distress ENT ENT exam: Present mucous membranes moist Expanded ENT Exam TM/Canal exam: Bilateral TM: bulging Throat exam: Present other (Pharyngeal erythema noted with PND) Respiratory Respiratory exam: Present normal lung sounds bilaterally; Absent respiratory distress or wheezes Cardiovascular Cardiovascular exam: Present regular rate, normal rhythm and normal heart sounds Neurological Exam Neurological exam: Present alert, oriented X3 and normal gait Medical Decision Making [place] Inquiry Pt receiving controlled substance: No [place] was queried for this patient: No Vital Signs: 10/03/23 12:05 Temperature 98.3 F Temperature Source Oral Pulse Rate [Right Radial] 96 H Respiratory Rate 19 Blood Pressure [Right Arm] 136/66 Blood Pressure Mean [Right Arm] 89 Blood Pressure Source [Right Arm] Automatic Cuff Blood Pressure Position [Right Arm] Sitting 02 Sat by Pulse Oximetry 98 Oxygen Delivery Method Room Air Medical Decision Narrative: Discussed CXR and patient declined at this time
[2023-10-03] MEDS: METHYLPREDNISOLONE SOD SUCC 125MG VIAL 125 MG IM (12:43)
[2023-10-03] MEDS: LIDOCAINE 1% 5ML PF VIAL IM (12:43)
[2023-10-03] MEDS: cefTRIAXone 1GM VIAL 1 GM IM (12:43)
[2023-10-03 13:06] VITALS: BP 136/66; PULSE 96; RESP 19; TEMP 36.8; O2SAT 98
== END 2023-10-03 13:06 | disposition home or self-care (01) ==
PROVIDERS: Emergency Provider Nurse Practitioner
DX: J20.9 Acute bronchitis, unspecified (principal); R07.81 Pleurodynia; R06.2 Wheezing; R05.8 Other specified cough; H92.02 Otalgia, left ear
CPT/HCPCS: 96372; 99212; 99214; G0463; J0696

== ENCOUNTER 2024-03-28 08:09 | Emergency (ER) | payer BC, SELFPAY ==
[2024-03-28 08:35] VITALS: BP 125/59; PULSE 86; RESP 20; TEMP 36.8; O2SAT 95; BMI 34.4
[2024-03-28 08:45] LABS: UTC Influenza A Antigen Negative (Negative)
[2024-03-28 08:46] LABS: UTC Influenza B Antigen Negative (Negative)
--- NOTE | 2024-03-28 08:55 | ED_ITS ---
Discharge Plan Disposition Patient Disposition: Home, Self-Care Condition: Good Prescriptions Prescriptions: New azithromycin [Zithromax Z-Steve] 250 mg tablet See Rx Instructions .ROUTE .COMPLEX 5 Days Qty: 6 0RF Rx Instructions: For 250 mg dose pack: take 500 mg today (day 1), then 250 mg for 4 days (days 2-5) benzonatate 100 mg capsule 100 mg PO TID PRN (Reason: cough) Qty: 30 0RF methylprednisolone [Medrol (Steve)] 4 mg tablets,dose pack See Rx Instructions .Route .COMPLEX 6 Days Qty: 21 0RF Rx Instructions: taper pack; guaifenesin [Mucinex] 600 mg tablet extended release 12hr 1,200 mg PO BID PRN (Reason: cough) Qty: 20 0RF No Action sertraline 50 mg tablet 150 mg PO DAILY Patient Comments: TAKE 3 TABLETS BY MOUTH ONCE DAILY azithromycin [Zithromax Z-Steve] 250 mg tablet See Rx Instructions .ROUTE .COMPLEX 5 Days Qty: 6 0RF Rx Instructions: For 250 mg dose pack: take 500 mg today (day 1), then 250 mg for 4 days (days 2-5) prednisone 20 mg tablet 20 mg PO BID 5 Days Qty: 10 0RF benzonatate 100 mg capsule 100 mg PO TID PRN (Reason: cough) Qty: 30 0RF guaifenesin [Mucinex] 600 mg tablet extended release 12hr 1,200 mg PO BID PRN (Reason: cough) Qty: 20 0RF Proair Digihaler 90 mcg/actuation aero powdr breath act w/sensor 1 - 2 inh inhalation Q6H PRN (Reason: shortness of breath or wheezing) Qty: 1 0RF aripiprazole 5 mg tablet 5 mg PO DAILY Patient Comments: TAKE 1 TABLET BY MOUTH AT BEDTIME amitriptyline 25 mg tablet 25 mg PO DAILY Patient Comments: TAKE 1 TABLET BY MOUTH ONCE DAILY AT BEDTIME Referrals Follow up/Referrals: Femi Soriano MD [Primary Care Provider] - See instructions Activity Restrictions/Add. Instructions Additional Instructions/Restrictions: * Start antibiotic today. Be sure to complete entire prescription even if feeling better * Monitor temp. Tylenol every 4 hours as needed and / or ibuprofen every 6 hours as needed ( As long as your primary care physician has told you that it ok to take both. For fever/aches/pains ER if no less than 101 despite Tylenol or Motrin * Humidifier/vaporizer or hot steamy shower * Mucinex during the day for your cough and cough suppressant only at night. Be sure to drink lots of water. Insurance may not cover a prescriptions for mucinex. Might be cheaper to get 400mg tablets and take 2 tablet in the morning, mid-day and evening with lots of water. *Tessalon Perles will not cause drowsiness but use at bedtime to help stop cough so that you may get some rest. *Start steroid today. Helps with inflammation therefore, cough and wheezing. Follow directions on the package. Reviewed side effects. Patient reports taking them before. Follow up IMMEDIATELY for new or worsening of symptoms OR no noticeable improvement over the next 48-72 hours. 911 immediately for any life threatening symptoms such as chest pain or difficulty breathing Clinical Impressions Clinical Impression: Sinusitis Instructions Patient Instructions: Sinusitis, DI for Sinusitis Print Language Print Language: Armenian Discharge ED Provider: Noemy Boykin [facility] HPI General Stated complaint: fever, cough, sore throat, aches, chills Mode of Arrival: Ambulatory Source of Information: Patient Time Seen by Provider: 03/28/24 08:55 Description of Symptoms (Recalled from Triage Doc. by RN): flu like s/s, cough, congestin, chills, aches, headache HEENT Symptoms (Recalled from RN notes): Yes Resp Symptoms (Recalled from RN notes): Yes Skin Symptoms (Recalled from RN notes): No MS Symptoms (Recalled from RN notes): No Functional Status (Recalled from RN notes): WNL History of Present Illness Provider Complaint: Patient states that she hasnt been feeling well for over a week with body aches, headache, chills, sore throat, sinus pain and pressure and now feels like it may have moved into her chest states today she wasnt feeling any better so she came in to get checked Related Data Home Medications ?Medication ?Instructions ?Recorded ?Confirmed sertraline 50 mg tablet 150 mg PO DAILY Anxiety 02/27/22 10/03/23 aripiprazole 5 mg tablet 5 mg PO DAILY Depression 10/15/22 10/03/23 amitriptyline 25 mg tablet 25 mg PO DAILY Depression 03/13/23 10/03/23 Previous Rx's ?Medication ?Instructions ?Recorded albuterol sulfate 90 mcg/actuation 1 - 2 inh inhalation Q6H PRN 10/03/23 breath activated powder shortness of breath or wheezing #1 inhaler,sensor (Proair Digihaler) ea azithromycin 250 mg tablet See Rx Instructions PO .COMPLEX 5 10/03/23 (Zithromax Z-Steve) days #6 tabs benzonatate 100 mg capsule 100 mg PO TID PRN cough #30 caps 10/03/23 guaifenesin 600 mg tablet, 1,200 mg (2 x 600 mg) PO BID PRN 10/03/23 extended release 12 hr (Mucinex) cough #20 tabs prednisone 20 mg tablet 20 mg PO BID 5 days #10 tabs 10/03/23 azithromycin 250 mg tablet See Rx Instructions PO .COMPLEX 5 03/28/24 (Zithromax Z-Steve) days #6 tabs benzonatate 100 mg capsule 100 mg PO TID PRN cough #30 caps 03/28/24 guaifenesin 600 mg tablet, 1,200 mg (2 x 600 mg) PO BID PRN 03/28/24 extended release 12 hr (Mucinex) cough #20 tabs methylprednisolone 4 mg tablets in See Rx Instructions .Route 03/28/24 a dose pack (Medrol (Steve)) .COMPLEX 6 days #21 tabs Allergies Allergy/AdvReac Type Severity Reaction Status Date / Time doxycycline Allergy Verified 10/03/23 12:19 Worker's Comp Is this a Worker's Comp case?: No [facility] Disclaimer: The information contained in this section may have been updated after the patient was seen, as this information can be updated by other users. Medical History (Updated 03/28/24 @ 09:15 by Noemy Boykin APRN) Ovarian cyst Depression Anxiety Surgical History Hx of arthroscopy of knee History of tonsillectomy History of section History of cholecystectomy Social History Smoking Status: Unknown if ever smoked alcohol intake: never current occupational status: other Travel in the last 8 weeks: None ROS Obtained: Yes All systems reviewed & no additional complaints except as documented and Yes Systems reviewed as appropriate & no additional complaints except as documented Constitutional Constitutional: Reports system reviewed and no additional complaints, except as documented, Reports as per HPI, Reports body ache, Reports chills and Reports headache(s) ENT Ears, Nose, Mouth, and Throat: Reports system reviewed and no additional complaints, except as documented, Reports as per HPI, Reports headache(s), Reports sinus pain, Reports sinus pressure and Reports sore throat Cardiovascular Cardiovascular: Reports system reviewed and no additional complaints, except as documented and Reports as per HPI Respiratory Respiratory: Reports system reviewed and no additional complaints, except as documented, Reports as per HPI, Reports chest congestion and Reports cough Gastrointestinal Gastrointestingal: Reports system reviewed and no additional complaints, except as documented and as per HPI Neurologic Neurologic: Reports headache(s) Physical Exam General General appearance: alert and in no apparent distress ENT ENT exam: Present mucous membranes moist Expanded ENT Exam Nose exam: Present sinus tenderness Throat exam: Present other (Pharyngeal erythema noted with PND) Respiratory Respiratory exam: Present normal lung sounds bilaterally; Absent respiratory distress or wheezes Cardiovascular Cardiovascular exam: Present regular rate, normal rhythm and normal heart sounds Neurological Exam Neurological exam: Present alert, oriented X3 and normal gait Medical Decision Making Medical Records Screening: Per USPSTF and CDC recommendations, given the prevalence of disease in our region, it is our hospital?s policy to screen for HIV and viral Hepatitis for all patients aged 18 and over and those with ongoing risk factors. Bereket Inquiry Pt receiving controlled substance: No Bereket was queried for this patient: No Vital Signs: 03/28/24 08:35 Temperature 98.2 F Temperature Source Oral Pulse Rate [Left Radial] 86 Respiratory Rate 20 Blood Pressure [Left Arm] 125/59 L Blood Pressure Mean [Left Arm] 81 02 Sat by Pulse Oximetry 95 Lab Data Lab results reviewed: Yes I reviewed the patient's lab results. Lab Results 03/28/24 08:44: Influenza Type A Ag Negative, Influenza Type B Ag Negative
[2024-03-28 09:20] VITALS: BP 125/59; PULSE 86; RESP 20; TEMP 36.8; O2SAT 95
[2024-03-28 09:22] LABS: UTC Strep Screen (Rapid) Negative (Negative)
== END 2024-03-28 09:24 | disposition home or self-care (01) ==
PROVIDERS: Emergency Provider Nurse Practitioner; PCP Family Medicine
DX: J32.9 Chronic sinusitis, unspecified (principal); R50.9 Fever, unspecified; R05.9 Cough, unspecified; R09.81 Nasal congestion; R51.9 Headache, unspecified; M79.10 Myalgia, unspecified site; J02.9 Acute pharyngitis, unspecified
CPT/HCPCS: 87804; 87880; 99212; G0381

== ENCOUNTER 2024-06-06 14:28 | Emergency (ER) | payer OTHER, BC, SELFPAY ==
[2024-06-06 14:50] VITALS: BP 118/70; PULSE 79; RESP 19; TEMP 36.8; O2SAT 98; BMI 34.9
--- NOTE | 2024-06-06 15:02 | ED_ITS ---
Discharge Plan Disposition Patient Disposition: Home, Self-Care Condition: Good Prescriptions Prescriptions: No Action sertraline 50 mg tablet 150 mg PO DAILY Patient Comments: TAKE 3 TABLETS BY MOUTH ONCE DAILY ropinirole 0.5 mg tablet 0.5 mg PO HS Patient Comments: TAKE 1 TABLET BY MOUTH ONCE DAILY AT BEDTIME Wegovy 2.4 mg/0.75 mL pen injector 2.4 mg SQ WEEKLY Patient Comments: INJECT 1 SYRINGE SUBCUTANEOUSLY ONCE A WEEK Referrals Follow up/Referrals: Femi Soriano MD [Primary Care Provider] - See instructions Activity Restrictions/Add. Instructions Additional Instructions/Restrictions: Please return with any new or worsening symptoms. Clinical Impressions Clinical Impression: Headache Print Language Print Language: Bulgarian Discharge ED Provider: Matty Burkett [facility] General Chief complaint: Headache Stated complaint: headache Mode of Arrival: Ambulatory Source of Information: Patient Limitations: No Limitations Time Seen by Provider: 06/06/24 15:02 Description of Symptoms (Recalled from Triage Doc. by RN): PATIENT C/O HEADACHE, NAUSEA, NECK PAIN AND DIZZINESS X 4 DAYS HEENT Symptoms (Recalled from RN notes): Yes Resp Symptoms (Recalled from RN notes): No Skin Symptoms (Recalled from RN notes): No MS Symptoms (Recalled from RN notes): No Functional Status (Recalled from RN notes): WNL History of Present Illness Provider Complaint: Patient states that she has had a headache for about 4 days that is not like the other headaches she has had in the past and states it is the worse headache she has ever had, states that she has been having nausea and dizziness on and off with it States that she has taken several OTC medications to help with it but nothing has helped so today when it was getting worse she came in to get checked Related Data Home Medications ?Medication ?Instructions ?Recorded ?Confirmed sertraline 50 mg tablet 150 mg PO DAILY Anxiety 02/27/22 06/06/24 ropinirole 0.5 mg tablet 0.5 mg PO HS 06/06/24 06/06/24 semaglutide (weight loss) 2.4 2.4 mg SQ WEEKLY 06/06/24 06/06/24 mg/0.75 mL subcutaneous pen injector (Wegovy) Allergies Allergy/AdvReac Type Severity Reaction Status Date / Time doxycycline Allergy Verified 10/03/23 12:19 Worker's Comp Is this a Worker's Comp case?: No PFSH PFSH Disclaimer: The information contained in this section may have been updated after the patient was seen, as this information can be updated by other users. Medical History (Updated 06/06/24 @ 18:28 by Matty Burkett MD) Ovarian cyst Depression Anxiety Surgical History Hx of arthroscopy of knee History of tonsillectomy History of section History of cholecystectomy Social History Smoking Status: Never smoker alcohol intake: never current occupational status: other Travel in the last 8 weeks: None ROS Obtained: Yes All systems reviewed & no additional complaints except as documented and Yes Systems reviewed as appropriate & no additional complaints except as documented Constitutional Constitutional: Reports system reviewed and no additional complaints, except as documented, Reports as per HPI and Reports headache(s) Eyes Eyes: Reports system reviewed and no additional complaints, except as documented and Reports as per HPI ENT Ears, Nose, Mouth, and Throat: Reports system reviewed and no additional complaints, except as documented, Reports as per HPI, Reports dizziness and Reports headache(s) Cardiovascular Cardiovascular: Reports system reviewed and no additional complaints, except as documented and Reports as per HPI Respiratory Respiratory: Reports system reviewed and no additional complaints, except as documented and Reports as per HPI Gastrointestinal Gastrointestingal: Reports system reviewed and no additional complaints, except as documented, as per HPI and nausea Genitourinary Female Genitourinary: Reports system reviewed and no additional complaints, except as documented and Reports as per HPI Neurologic Neurologic: Reports dizziness and Reports headache(s) Physical Exam General General appearance: alert and in no apparent distress Eye Eye exam: Present normal appearance, PERRL and EOMI Respiratory Respiratory exam: Present normal lung sounds bilaterally; Absent respiratory distress or wheezes Cardiovascular Cardiovascular exam: Present regular rate, normal rhythm and normal heart sounds Neurological Exam Neurological exam: Present alert, oriented X3 and normal gait Medical Decision Making Medical Records Screening: Per USPSTF and CDC recommendations, given the prevalence of disease in our region, it is our hospital?s policy to screen for HIV and viral Hepatitis for all patients aged 18 and over and those with ongoing risk factors. Bereket Inquiry Pt receiving controlled substance: No Bereket was queried for this patient: No Vital Signs: 06/06/24 14:50 Temperature 98.3 F Temperature Source Oral Pulse Rate [Left Brachial] 79 Respiratory Rate 19 Blood Pressure [Left Arm] 118/70 Blood Pressure Mean [Left Arm] 86 Blood Pressure Source [Left Arm] Automatic Cuff Blood Pressure Position [Left Arm] Sitting 02 Sat by Pulse Oximetry 98 Oxygen Delivery Method Room Air Lab Data 06/06/24 16:33 06/06/24 16:33 Medical Decision Narrative: Patient reports worse headache of her life and not like other headaches she has had in the past States that pain is in the back of her head and goes into neck area and it makes her feel dizzy and nauseous Discussed with patient and due to complaint of worse headache of her life and different from her other headaches it is recommended that she be transferred to the ED for further work up and evaluation and she agreed Called ED and patient was moved to the ED for further treatment
--- NOTE | 2024-06-06 15:15 | PC.NURSE ---
PATIENT SENT TO ER PER Allen CULVER APRN FOR FURTHER EVALUATION. REPORT GIVEN TO MAURILIO MONAE BY Allen CULVER APRN. PATIENT AMBULATED TO ER WITH [facility] STAFF AT THIS TIME
[2024-06-06 15:23] VITALS: BP 129/83; PULSE 81; RESP 18; TEMP 36.6; O2SAT 99; BMI 33.7
[2024-06-06 15:31] VITALS: BP 103/65; PULSE 73; O2SAT 99
[2024-06-06 16:00] VITALS: BP 124/60; PULSE 78; O2SAT 98
--- NOTE | 2024-06-06 16:01 | CT_ITS ---
PROCEDURE INFORMATION: Exam: CT Head Without Contrast Exam date and time: 06/06/2024 5:48 PM Age: 48 years old Clinical indication: Pain; Headache; Additional info: Sudden onset DOWNEY 3d ago TECHNIQUE: Imaging protocol: Computed tomography of the head without contrast. Radiation optimization: All CT scans at this facility use at least one of these dose optimization techniques: automated exposure control; mA and/or kV adjustment per patient size (includes targeted exams where dose is matched to clinical indication); or iterative reconstruction. COMPARISON: 1. CT ANGIO HEAD 10/13/2022 12:[address] HEAD/BRAIN WO CON 10/13/2022 12:[address] FACIAL BONES WO CON 10/13/2022 12:36 PM FINDINGS: Brain: Normal. No hemorrhage. Unremarkable white matter. No mass effect. Cerebral ventricles: No ventriculomegaly. Paranasal sinuses: Visualized sinuses are unremarkable. No fluid levels. Mastoid air cells: Visualized mastoid air cells are well aerated. Teeth: There is dental amalgam which causes streak artifact and mildly limits evaluation of the oral cavity. Bones: Unremarkable. No acute fracture. Soft tissues: Unremarkable. IMPRESSION: No acute intracranial abnormality.
--- NOTE | 2024-06-06 16:01 | CT_ITS ---
PROCEDURE INFORMATION: Exam: CTA Head With Contrast, Arteriography Exam date and time: 06/06/2024 5:50 PM Age: 48 years old Clinical indication: Pain; Headache; Additional info: Sudden onset DOWNEY 3d ago TECHNIQUE: Imaging protocol: Computed tomographic angiography of the head with contrast. Exam focused on the arteries. 3D rendering (Not supervised by radiologist): MIP and/or 3D reconstructed images were created by the technologist. Radiation optimization: All CT scans at this facility use at least one of these dose optimization techniques: automated exposure control; mA and/or kV adjustment per patient size (includes targeted exams where dose is matched to clinical indication); or iterative reconstruction. Contrast material: ISOVUE 370; Contrast volume: 80 ml; Contrast route: INTRAVENOUS (IV); COMPARISON: 1. CT ANGIO HEAD 10/13/2022 12:[address] HEAD/BRAIN WO CON 06/06/2024 5:[address] HEAD/BRAIN WO CON 10/13/2022 12:31 PM FINDINGS: ANTERIOR CIRCULATION: Right internal carotid artery: Intracranial segment is patent with no significant stenosis. No aneurysm. Right middle cerebral artery: No occlusion or significant stenosis. No aneurysm. Right anterior cerebral artery: No occlusion or significant stenosis. No aneurysm. Left internal carotid artery: Intracranial segment is patent with no significant stenosis. No aneurysm. Left middle cerebral artery: No occlusion or significant stenosis. No aneurysm. Left anterior cerebral artery: No occlusion or significant stenosis. No aneurysm. POSTERIOR CIRCULATION: Right vertebral artery: Stable relatively atrophic right vertebral artery normal variant. Left vertebral artery: No occlusion or significant stenosis. No aneurysm. Basilar artery: No occlusion or significant stenosis. No aneurysm. Right posterior cerebral artery: No occlusion or significant stenosis. No aneurysm. Left posterior cerebral artery: No occlusion or significant stenosis. No aneurysm. Brain: No definite mass, mass effect, or midline shift. Cerebral ventricles: No ventriculomegaly. Teeth: There is dental amalgam which causes streak artifact and mildly limits evaluation of the oral cavity. Bones/joints: Unremarkable. No acute fracture. Soft tissues: Unremarkable. IMPRESSION: No large vessel stenosis or occlusion.
--- NOTE | 2024-06-06 16:02 | CT_ITS ---
PROCEDURE INFORMATION: Exam: CTA Neck With Contrast Exam date and time: 06/06/2024 5:50 PM Age: 48 years old Clinical indication: Pain; Headache; Additional info: Sudden onset DOWNEY 3d ago TECHNIQUE: Imaging protocol: Computed tomographic angiography of the neck with contrast. Exam focused on the cervical segments of the vasculature. 3D rendering (Not supervised by radiologist): MIP and/or 3D reconstructed images were created by the technologist. Radiation optimization: All CT scans at this facility use at least one of these dose optimization techniques: automated exposure control; mA and/or kV adjustment per patient size (includes targeted exams where dose is matched to clinical indication); or iterative reconstruction. Contrast material: ISOVUE 370; Contrast volume: 80 ml; Contrast route: INTRAVENOUS (IV); COMPARISON: 1. CT ANGIO NECK 10/13/2022 12:[address] CERVICAL SPINE WO CON 10/13/2022 12:[address] ANGIO HEAD 06/06/2024 5:50 PM FINDINGS: Right common carotid artery: No stenosis. No dissection or occlusion. Right internal carotid artery: No stenosis of the extracranial segment. No dissection or occlusion. Right external carotid artery: No occlusion or stenosis of the origin. Left common carotid artery: No stenosis. No dissection or occlusion. Left internal carotid artery: No stenosis of the extracranial segment. No dissection or occlusion. Left external carotid artery: No occlusion or stenosis of the origin. Right vertebral artery: No stenosis. No dissection or occlusion. Stable diminutive right vertebral artery. Left vertebral artery: No stenosis. No dissection or occlusion. Teeth: There is dental amalgam which causes streak artifact and mildly limits evaluation of the oral cavity. Soft tissues: Normal. No significant soft tissue swelling. Bones/joints: No acute fracture. IMPRESSION: No acute abnormality of the cervical vasculature. Stable diminutive right vertebral artery. REFERENCES: NASCET CRITERIA. The degree of stenosis in the cervical segment of the internal carotid artery is based on NASCET criteria. Normal is no stenosis. Mild is less than 50% stenosis. Moderate is 50-69% stenosis. Severe is 70% to 99% stenosis. Total occlusion is no detectable patent lumen.
[2024-06-06] MEDS: MAGNESIUM SULFATE IN WATER 2 GM/50 ML PIGGYBACK IV (16:21)
[2024-06-06] MEDS: 0.9 % SODIUM CHLORIDE 1000ML 1,000 ML 999 ML IV (16:22)
[2024-06-06] MEDS: diphenhydrAMINE 50MG/ML VIAL 25 MG IV (16:22)
[2024-06-06] MEDS: PROCHLORPERAZINE 10MG/2ML VIAL 10 MG IV (16:23)
[2024-06-06] MEDS: KETOROLAC 30MG/ML VIAL 15 MG IV (16:24)
[2024-06-06] MEDS: DEXAMETHASONE 4MG/ML 1ML VIAL 10 MG IV (16:26)
[2024-06-06 16:46] LABS: Basophils # 0.1 K/mm3 (0-0.2); Basophils % 1.2 % (0.1-2.0); Eosinophils # 0.1 K/mm3 (0.0-0.4); Eosinophils % 2.7 % (0.1-12.0); Hematocrit 41.3 % (37.0-47.0); Hemoglobin 14.1 g/dL (12.2-16.2); Lymphocytes # 1.8 K/mm3 (0.7-4.5); Lymphocytes % 38.7 % (10-50); Mean Corpuscular HGB Conc 34.2 g/dL (31.8-35.4); Mean Corpuscular Volume 90.4 fl (81-99); Mean Platelet Volume 7.1 fl (7.4-10.4); Monocytes # 0.2 K/mm3 (0.1-1.0); Monocytes % 3.7 % (1.7-9.3); Neutrophils # 2.5 K/mm3 (1.8-7.8); Neutrophils % 53.7 % (37.0-80.0); Platelet Count 208 K/mm3 (142-424); Red Blood Count 4.57 M/mm3 (4.20-5.40); Red Cell Distribution Width 14.2 % (11.5-17.5); White Blood Count 4.7 K/mm3 (4.8-10.8)
[2024-06-06 16:51] LABS: Albumin Level 4.4 g/dl (3.5-5.0); Chloride 104 mmol/L (98-107); Potassium 3.6 mmoL/L (3.5-5.1); Sodium 135 mmol/L (136-145)
[2024-06-06 16:54] LABS: Alanine Aminotransferase 16 U/L (12-78); Albumin/Globulin Ratio 1.8 (1.1-1.8); Alkaline Phosphatase 71 U/L (38-126); Anion Gap 5.6 mEq/L (5-15); Aspartate Amino Transferase 23 U/L (14-36); Bilirubin,Total 0.5 mg/dl (0.2-1.3); Blood Urea Nitrogen 13 mg/dl (7-17); Carbon Dioxide 29 mmol/L (22.0-30.0); Creatinine Clearance Estimated 108 mL/min (50-200); Estimated Glomerular Filt Rate 67 ml/min (>60); GFR (African American) 81 ML/MIN (>60); Globulin 2.5 g/dL (1.3-3.2); Total Protein,Serum 6.9 g/dl (6.3-8.2)
[2024-06-06 16:55] LABS: Calcium 9.1 mg/dl (8.4-10.2); Glucose 90 mg/dl (74-100)
[2024-06-06 17:04] LABS: INR 0.91 (0.9-1.1); Prothrombin Time 10.3 seconds (10.1-12.5)
[2024-06-06 17:32] LABS: HCG Qualitative, Serum Negative (Negative)
[2024-06-06] MEDS: 0.9 % SODIUM CHLORIDE 50 ML VIAL IV (18:00)
[2024-06-06] MEDS: SODIUM CHLORIDE 0.9% 10ML SYR (RAD ONLY) 10 ML IV (18:00)
[2024-06-06] MEDS: IOPAMIDOL-370 (76%);100ML BOTTLE 80 ML IV (18:01)
[2024-06-06 18:19] LABS: HIV (1&2) Antibody Rapid NONREACTIVE (NONREACTIVE)
[2024-06-06 18:39] VITALS: BP 129/83; PULSE 81; RESP 18; TEMP 36.6
[2024-06-07 10:10] LABS: HCV Ab Non Reactive (Non Reactive)
--- NOTE | 2024-06-18 14:08 | HMH.EDGENADL ---
Discharge Plan Disposition Patient Disposition: Home, Self-Care Condition: Good Prescriptions Prescriptions: No Action sertraline 50 mg tablet 150 mg PO DAILY Patient Comments: TAKE 3 TABLETS BY MOUTH ONCE DAILY ropinirole 0.5 mg tablet 0.5 mg PO HS Patient Comments: TAKE 1 TABLET BY MOUTH ONCE DAILY AT BEDTIME Wegovy 2.4 mg/0.75 mL pen injector 2.4 mg SQ WEEKLY Patient Comments: INJECT 1 SYRINGE SUBCUTANEOUSLY ONCE A WEEK Referrals Follow up/Referrals: Femi Soriano MD [Primary Care Provider] - See instructions Activity Restrictions/Add. Instructions Additional Instructions/Restrictions: Please return with any new or worsening symptoms. Clinical Impressions Clinical Impression: Headache Print Language Print Language: Syrian Discharge ED Provider: Matty Burkett Adult HPI General Chief complaint: Headache Stated complaint: headache Time Seen by Provider: 06/06/24 15:02 Mode of Arrival: Ambulatory Source of Information: Patient Limitations: No Limitations Description of Symptoms (Recalled from ER Triage Doc. by RN): head ach x 4 days increase with noise History of Present Illness HPI narrative: Patient presents for evaluation of a simple headache, gradual in onset, constant, worsening, without thunderclap of symptoms. No associated nausea vomiting fevers chills nuchal rigidity numbness tingling. No diplopia, no noted photophobia or phonophobia. Patient has not had similar symptoms before. No injury. Please note that above description of symptoms, in this electronic medical record under categorization of recalled from ER triage doctor by RN are reflective of an initial nursing assessment, however, is not reflective of my full history and physical exam that was personally taken and clarified. Consequentially, this preceding description of symptoms, which may include the patient's categorized chief complaint in the EMR, do not reflect my personal clinical impression, and the ultimate description of history of present illness and patient stated complaints should be deferred to this section of the note. Unless stated otherwise or congruent with this section of the note, additional signs, symptoms, or incongruence should be interpreted as inaccurate with my clinical impression. Related Data Home Medications ?Medication ?Instructions ?Recorded ?Confirmed sertraline 50 mg tablet 150 mg PO DAILY Anxiety 02/27/22 06/06/24 ropinirole 0.5 mg tablet 0.5 mg PO HS 06/06/24 06/06/24 semaglutide (weight loss) 2.4 2.4 mg SQ WEEKLY 06/06/24 06/06/24 mg/0.75 mL subcutaneous pen injector (Wegovy) Allergies Allergy/AdvReac Type Severity Reaction Status Date / Time doxycycline Allergy Verified 10/03/23 12:19 [facility] Disclaimer: The information contained in this section may have been updated after the patient was seen, as this information can be updated by other users. Medical History (Updated 06/06/24 @ 18:28 by Matty Burkett MD) Ovarian cyst Depression Anxiety Surgical History Hx of arthroscopy of knee History of tonsillectomy History of section History of cholecystectomy Social History Smoking Status: Never smoker alcohol intake: never current occupational status: other Travel in the last 8 weeks: None Have you lived/traveled outside US in past 30 days?: No Contact w/someone who lives/traveled outside US past 30 days?: No Exposure to someone with infectious disease in past 14 days?: No Do you have a fever (greater than 100.4 F or 38 C)?: No Have you tested positive for COVID-19: No Exposed to someone with COVID-19 in past 14 days?: No Do you have a sore throat?: No Do you have a cough?: No Do you have any weakness?: No Do you have any diarrhea?: No Are you experiencing any unusual bleeding?: No Do you have any muscle aches/pain?: No Do you have any abdominal pain?: No Are you experiencing loss of taste or smell?: No ROS Obtained: Yes other As per HPI Physical Exam General General appearance: alert and in no apparent distress Head Head exam: atraumatic and normocephalic Eye Eye exam: Present normal appearance Neck Neck exam: Present normal inspection Chest Chest inspection: Present normal inspection and symmetric chest wall rise Respiratory Respiratory exam: Present normal lung sounds bilaterally; Absent respiratory distress Cardiovascular Cardiovascular exam: Present regular rate and normal rhythm Abdominal Exam Abdominal exam: Present soft Neurological Exam Neurological exam: Present alert and oriented X3 Psychiatric Psychiatric exam: Present normal affect and normal mood Skin Skin exam: Present warm and dry Medical Decision Making Medical Records Medical records reviewed: Yes I reviewed the patient's medical records. Screening: Per USPSTF and CDC recommendations, given the prevalence of disease in our region, it is our hospital?s policy to screen for HIV and viral Hepatitis for all patients aged 18 and over and those with ongoing risk factors. Bereket Inquiry Pt receiving controlled substance: No Vital Signs: 06/06/24 14:50 06/06/24 15:23 06/06/24 15:31 Temperature 98.3 F 97.9 F Temperature Source Oral Oral Pulse Rate 73 Pulse Rate [Left Brachial] 79 81 Respiratory Rate 19 18 Blood Pressure 103/65 L Blood Pressure [Left Arm] 118/70 129/83 Blood Pressure Mean [Left Arm] 86 98 Blood Pressure Source [Left Arm] Automatic Cuff Blood Pressure Position [Left Arm] Sitting 02 Sat by Pulse Oximetry 98 99 99 Oxygen Delivery Method Room Air Room Air 06/06/24 16:00 06/06/24 18:39 Temperature 97.9 F Temperature Source Oral Pulse Rate 78 81 Pulse Rate [Left Brachial] Respiratory Rate 18 Blood Pressure 124/60 129/83 Blood Pressure [Left Arm] Blood Pressure Mean [Left Arm] Blood Pressure Source [Left Arm] Blood Pressure Position [Left Arm] 02 Sat by Pulse Oximetry 98 Oxygen Delivery Method Lab Data Lab Results 06/06/24 16:33: WBC 4.7 L, RBC 4.57, Hgb 14.1, Hct 41.3, MCV 90.4, MCH 31.0, MCHC 34.2, RDW 14.2, Plt Count 208, MPV 7.1 L, Neut % (Auto) 53.7, Lymph % (Auto) 38.7, Mobile % (Auto) 3.7, Eos % (Auto) 2.7, Baso % (Auto) 1.2, Neut # (Auto) 2.5, Lymph # (Auto) 1.8, Mobile # (Auto) 0.2, Eos # (Auto) 0.1, Baso # (Auto) 0.1, PT 10.3, INR 0.91, Sodium 135 L, Potassium 3.6, Chloride 104, Carbon Dioxide 29, Anion Gap 5.6, BUN 13, Creatinine 0.90, Estimated Creat Clear 108, Estimated GFR 67, Est GFR ( Amer) 81, Glucose 90, Calcium 9.1, Total Bilirubin 0.5, AST 23, ALT 16, Alkaline Phosphatase 71, Total Protein 6.9, Albumin 4.4, Globulin 2.5, Albumin/Globulin Ratio 1.8, Serum HCG, Qual Negative, Hepatitis C Antibody Non reactive, HIV 1&2 Antibody Rapid Nonreactive 06/06/24 16:33 06/06/24 16:33 Orders (Tests/Meds): ED MEDICATIONS Discontinued Medications Generic Name Dose Route Start Last Admin Trade Name Tomasq PRN Reason Stop Dose Admin Dexamethasone Sodium Phosphate 10 mg 06/06/24 16:01 06/06/24 16:26 Dexamethasone 4mg/Ml 1ml Vial IV 06/06/24 16:02 10 mg ONCE ONE Administration Diphenhydramine HCl 25 mg 06/06/24 16:01 06/06/24 16:22 Diphenhydramine 50mg/Ml Vial IV 06/06/24 16:02 25 mg ONCE ONE Administration Sodium Chloride 1,000 mls @ 999 mls/hr 06/06/24 16:01 06/06/24 16:22 Sod Chlor 0.9% 1000ml Bag IV 06/06/24 17:01 999 mls/hr .Q1H1M ONE Administration Magnesium Sulfate 2 gm in 50 mls @ 50 mls/hr 06/06/24 16:01 06/06/24 16:21 Magnesium Sulfate 2gm/50ml Premix IV 06/06/24 17:00 50 mls/hr ONCE ONE Administration Iopamidol 80 ml 06/06/24 18:00 06/06/24 18:01 Iopamidol-370 (76%);100ml Bottle IV 06/06/24 18:01 80 ml ONCE ONE Administration Ketorolac Tromethamine 15 mg 06/06/24 16:01 06/06/24 16:24 Ketorolac 30mg/Ml Vial IV 06/06/24 16:02 15 mg ONCE ONE Administration Prochlorperazine Edisylate 10 mg 06/06/24 16:01 06/06/24 16:23 Prochlorperazine 10mg/2ml Vial IV 06/06/24 16:02 10 mg ONCE ONE Administration Sodium Chloride 10 ml 06/06/24 18:00 06/06/24 18:00 Sodium Chloride 0.9% 10ml Syr (Rad Only) IV 06/06/24 18:01 10 ml ONCE ONE Administration Sodium Chloride 50 ml 06/06/24 18:00 06/06/24 18:00 0.9 % Sodium Chloride 50 Ml Vial IV 06/06/24 18:01 50 ml ONCE ONE Administration ORDERS Category Date Time Status CT angio head Stat Cat Scan 06/06/24 16:[address] angio neck Stat Cat Scan 06/06/24 16:[address] head/brain wo con Stat Cat Scan 06/06/24 16:01 Completed CBC w/Auto Diff [Complete Blood Count Auto Diff] Stat Lab 06/06/24 16:33 Completed CMP [Comprehensive Metabolic Panel] Stat Lab 06/06/24 16:33 Completed HCG Qualitative, Serum Stat Lab 06/06/24 16:33 Completed HIV (1&2) Antibody Rapid Stat Lab 06/06/24 16:33 Completed Hep C Ab with Reflex to RNA Stat Lab 06/06/24 16:33 Completed PT INR [Prothrombin Time INR] Stat Lab 06/06/24 16:33 Completed Medical Decision Narrative: Patient with history and exam per above presenting for evaluation of headache Diagnoses considered include migraine, tension headache, subarachnoid hemorrhage, intracranial hemorrhage, among others ED workup and treatment included: ED MEDICATIONS Discontinued Medications Generic Name Dose Route Start Last Admin Trade Name Freq PRN Reason Stop Dose Admin Dexamethasone Sodium Phosphate 10 mg 06/06/24 16:01 06/06/24 16:26 Dexamethasone 4mg/Ml 1ml Vial IV 06/06/24 16:02 10 mg ONCE ONE Administration Diphenhydramine HCl 25 mg 06/06/24 16:01 06/06/24 16:22 Diphenhydramine 50mg/Ml Vial IV 06/06/24 16:02 25 mg ONCE ONE Administration Sodium Chloride 1,000 mls @ 999 mls/hr 06/06/24 16:01 06/06/24 16:22 Sod Chlor 0.9% 1000ml Bag IV 06/06/24 17:01 999 mls/hr .Q1H1M ONE Administration Magnesium Sulfate 2 gm in 50 mls @ 50 mls/hr 06/06/24 16:01 06/06/24 16:21 Magnesium Sulfate 2gm/50ml Premix IV 06/06/24 17:00 50 mls/hr ONCE ONE Administration Iopamidol 80 ml 06/06/24 18:00 06/06/24 18:01 Iopamidol-370 (76%);100ml Bottle IV 06/06/24 18:01 80 ml ONCE ONE Administration Ketorolac Tromethamine 15 mg 06/06/24 16:01 06/06/24 16:24 Ketorolac 30mg/Ml Vial IV 06/06/24 16:02 15 mg ONCE ONE Administration Prochlorperazine Edisylate 10 mg 06/06/24 16:01 06/06/24 16:23 Prochlorperazine 10mg/2ml Vial IV 06/06/24 16:02 10 mg ONCE ONE Administration Sodium Chloride 10 ml 06/06/24 18:00 06/06/24 18:00 Sodium Chloride 0.9% 10ml Syr (Rad Only) IV 06/06/24 18:01 10 ml ONCE ONE Administration Sodium Chloride 50 ml 06/06/24 18:00 06/06/24 18:00 0.9 % Sodium Chloride 50 Ml Vial IV 06/06/24 18:01 50 ml ONCE ONE Administration ORDERS Category Date Time Status CT angio head Stat Cat Scan 06/06/24 16:[address] angio neck Stat Cat Scan 06/06/24 16:[address] head/brain wo con Stat Cat Scan 06/06/24 16:01 Completed CBC w/Auto Diff [Complete Blood Count Auto Diff] Stat Lab 06/06/24 16:33 Completed CMP [Comprehensive Metabolic Panel] Stat Lab 06/06/24 16:33 Completed HCG Qualitative, Serum Stat Lab 06/06/24 16:33 Completed HIV (1&2) Antibody Rapid Stat Lab 06/06/24 16:33 Completed Hep C Ab with Reflex to RNA Stat Lab 06/06/24 16:33 Completed PT INR [Prothrombin Time INR] Stat Lab 06/06/24 16:33 Completed Labs were independently interpreted by me, significant for no acute findings Imaging was independently visualized and interpreted by me, significant for no acute findings Please refer to radiology report for full details. My clinical impression at this time is most consistent with migraine headache. Patient reports improvement symptoms upon repeat evaluation. I discussed my clinical impression with patient and answered all questions. At this time, the evidence for any other entities in the differential is insufficient to warrant any further testing or ED observation. This was explained to the patient. The patient was advised that persistent or worsening symptoms require further evaluation. Critical Care Critical Care Time Critical Care Time: No
== END 2024-06-06 18:40 | disposition home or self-care (01) ==
LOC: UTC 15:17 → ER 15:17
PROVIDERS: Emergency Provider Emergency Medicine; PCP Family Medicine
DX: R51.9 Headache, unspecified (principal); R11.0 Nausea; M54.2 Cervicalgia; R42 Dizziness and giddiness
CPT/HCPCS: 70450; 70496; 70498; 80053; 84703; 85025; 85610; 86803; 87389; 96361; 96374; 96375; 99285; J0780; J1100; J1200; J1885; J3475; J7030; Q9967

== ENCOUNTER 2024-07-06 10:49 | Emergency (ER) | payer BC, OTHER, SELFPAY ==
[2024-07-06 11:15] VITALS: BP 104/72; PULSE 103; RESP 20; TEMP 37.3; O2SAT 96; BMI 34.1
--- NOTE | 2024-07-06 11:30 | EXP.UTC ---
Discharge Plan Disposition Patient Disposition: Home, Self-Care Condition: Good Prescriptions Prescriptions: New azithromycin [Zithromax] 250 mg tablet 250 mg PO UD DOSE PK Qty: 6 0RF Rx Instructions: Take two (2) tablets today, then one (1) tablet days #2 thru #5 benzonatate 100 mg capsule 100 mg PO TIDP PRN (Reason: Cough) Qty: 30 0RF methylprednisolone 4 mg Tablets,Dose Pack 4 mg PO DIRECTED 6 Days Qty: 21 0RF Rx Instructions: Take 1 pack as directed for 6 days No Action sertraline 50 mg tablet 150 mg PO DAILY Patient Comments: TAKE 3 TABLETS BY MOUTH ONCE DAILY ropinirole 0.5 mg tablet 0.5 mg PO HS Patient Comments: TAKE 1 TABLET BY MOUTH ONCE DAILY AT BEDTIME Wegovy 2.4 mg/0.75 mL pen injector 2.4 mg SQ WEEKLY Patient Comments: INJECT 1 SYRINGE SUBCUTANEOUSLY ONCE A WEEK Referrals Follow up/Referrals: Femi Soriano MD [Primary Care Provider] - See instructions Activity Restrictions/Add. Instructions Additional Instructions/Restrictions: Drink plenty of fluids. Take tylenol or ibuprofen for pain or fever. Take the medications as directed. Follow up with your regular doctor. GO TO THE ER FOR ANY WORSENING SYMPTOMS Clinical Impressions Clinical Impression: Exposure to strep throat Pharyngitis Qualifiers: Pharyngitis/tonsillitis etiology: unspecified etiology Qualified Code(s): J02.9 - Acute pharyngitis, unspecified Stand Alone Forms Stand Alone Forms: Work/School Release Instructions Patient Instructions: Strep Throat, DI for Strep Throat Print Language Print Language: Greek Discharge ED Provider: Aleksey Pisano [facility] General Stated complaint: cough, sore throat, causea and headache Time Seen by Provider: 07/06/24 11:29 History of Present Illness Provider Complaint: She states that for the past 2 days she has had cough, very sore throat, low grade fever, and malaise. She has been exposed to strep throat in her home by both her son and her currently having strep throat. Related Data Home Medications ?Medication ?Instructions ?Recorded ?Confirmed sertraline 50 mg tablet 150 mg PO DAILY Anxiety 02/27/22 07/06/24 ropinirole 0.5 mg tablet 0.5 mg PO HS 06/06/24 07/06/24 semaglutide (weight loss) 2.4 2.4 mg SQ WEEKLY 06/06/24 07/06/24 mg/0.75 mL subcutaneous pen injector (Wegovy) Previous Rx's ?Medication ?Instructions ?Recorded azithromycin 250 mg tablet 250 mg PO UD DOSE PK #6 tabs 07/06/24 (Zithromax) benzonatate 100 mg capsule 100 mg PO TIDP PRN Cough #30 caps 07/06/24 methylprednisolone 4 mg tablets in 4 mg PO DIRECTED 6 days #21 tabs 07/06/24 a dose pack Allergies Allergy/AdvReac Type Severity Reaction Status Date / Time doxycycline Allergy Verified 10/03/23 12:19 [facility] Disclaimer: The information contained in this section may have been updated after the patient was seen, as this information can be updated by other users. Medical History (Updated 07/06/24 @ 11:57 by Aleksey Pisano APRN) Ovarian cyst Depression Anxiety Surgical History Hx of arthroscopy of knee History of tonsillectomy History of section History of cholecystectomy Social History Smoking Status: Never smoker alcohol intake: never current occupational status: other Travel in the last 8 weeks: None Have you lived/traveled outside [place] in past 30 days?: No Contact w/someone who lives/traveled outside [place] past 30 days?: No Exposure to someone with infectious disease in past 14 days?: No Do you have a fever (greater than 100.4 F or 38 C)?: No Have you tested positive for COVID-19: No Exposed to someone with COVID-19 in past 14 days?: No Do you have a sore throat?: Yes Do you have a cough?: Yes Do you have any weakness?: No Do you have any diarrhea?: No Are you experiencing any unusual bleeding?: No Do you have any muscle aches/pain?: No Do you have any abdominal pain?: No Are you experiencing loss of taste or smell?: No ROS Obtained: Yes All systems reviewed & no additional complaints except as documented Constitutional Constitutional: Reports chills and Reports fever(s) Eyes Eyes: Denies eye discharge ENT Ears, Nose, Mouth, and Throat: Reports as per HPI Cardiovascular Cardiovascular: Denies chest pain Respiratory Respiratory: Denies chest congestion and Reports cough Gastrointestinal Gastrointestingal: Reports nausea; Denies abdominal pain, constipation, cramping, diarrhea or vomiting Musculoskeletal Musculoskeletal: Denies arthralgias Integumentary/Breasts Skin/Breast: Denies rash Neurologic Neurologic: Denies paresthesias Physical Exam General General appearance: alert and in no apparent distress Head Head exam: atraumatic, normocephalic and normal inspection Eye Eye exam: Present normal appearance, PERRL and EOMI ENT ENT exam: Present mucous membranes moist and normal external ear exam Expanded ENT Exam TM/Canal exam: Bilateral TM: erythema and bulging Nose exam: Absent sinus tenderness Mouth exam: Present normal external inspection; Absent drooling Teeth exam: Present normal inspection Throat exam: Present tonsillar erythema, tonsillomegaly and tonsillar exudate Neck Neck exam: Present normal inspection, full ROM and trachea midline; Absent tenderness, meningismus or lymphadenopathy Chest Chest inspection: Present normal inspection and symmetric chest wall rise; Absent tenderness Respiratory Respiratory exam: Present normal lung sounds bilaterally; Absent respiratory distress, wheezes, stridor or accessory muscle use Cardiovascular Cardiovascular exam: Present regular rate and normal rhythm; Absent systolic murmur or diastolic murmur Abdominal Exam Abdominal exam: Present soft and normal bowel sounds; Absent distention, tenderness, guarding, rebound or rigidity Extremities Exam Extremities exam: Present normal inspection and normal capillary refill; Absent calf tenderness Back Exam Back exam: Present normal inspection and full ROM; Absent tenderness, CVA tenderness (R) or CVA tenderness (L) Neurological Exam Neurological exam: Present alert, oriented X3 and CN II-XII intact Psychiatric Psychiatric exam: Present normal affect and normal mood Skin Skin exam: Present warm, dry, intact and normal color Medical Decision Making Medical Records Medical records reviewed: No I reviewed the patient's medical records. Screening: Per USPSTF and CDC recommendations, given the prevalence of disease in our region, it is our hospital?s policy to screen for HIV and viral Hepatitis for all patients aged 18 and over and those with ongoing risk factors. Bereket Inquiry Pt receiving controlled substance: No Lab Data Lab results reviewed: Yes I reviewed the patient's lab results.
[2024-07-06 11:37] LABS: UTC Influenza A Antigen Negative (Negative); UTC Strep Screen (Rapid) Negative (Negative)
[2024-07-06 11:38] LABS: UTC Influenza B Antigen Negative (Negative)
[2024-07-06 11:55] VITALS: BP 104/72; PULSE 103; RESP 20; TEMP 37.3; O2SAT 96
== END 2024-07-06 12:10 | disposition home or self-care (01) ==
PROVIDERS: Emergency Provider Nurse Practitioner Family; PCP Family Medicine
DX: J02.9 Acute pharyngitis, unspecified (principal)
CPT/HCPCS: 87804; 87880; 99213; G0381

== ENCOUNTER 2024-09-27 15:32 | Emergency (ER) | payer BC, SELFPAY ==
[2024-09-27] VITALS (9 sets, daily range): BP systolic 109–123; BP diastolic 68–79; PULSE 66–92; RESP 13–20; TEMP 36.6–36.7; O2SAT 95–98; BMI 32.9
[2024-09-27 15:43] LABS: Microscopic, Urine URINE MICROSCOPIC (MICROSCOPIC)
[2024-09-27 15:46] LABS: Bilirubin,Urine Negative (Negative); Blood, Urine Negative (Negative); Color,Urine YELLOW (Yellow); Glucose,Urine (UA) Negative (Negative); Ketones,Urine Negative (Negative); Leukocyte Esterase,Urine Negative (Negative); Nitrate,Urine Negative (Negative); Protein,Urine Negative (Negative); Specific Gravity, Urine >= 1.030 (1.005-1.030); Urobilinogen,Urine 0.2 EU/dl (0.2)
[2024-09-27 15:50] LABS: Appearance,Urine Slightly Cloudy (Clear)
--- NOTE | 2024-09-27 15:51 | ED_ITS ---
<Statement entered by Luisito Rajan MD - 09/27/24 20:07> I was consulted by the HELENE, and we discussed the complexity of the problems being addressed. I approved the treatment and management plan for this patient's care in the emergency department, thus performing a substantive portion of the medical decision making. Lusiito Rajan MD, DEVI, FACEP Discharge Plan Disposition Patient Disposition: Home, Self-Care Prescriptions Prescriptions: New amoxicillin-pot clavulanate 875-125 mg tablet 1 tab PO BID Qty: 20 0RF No Action sertraline 50 mg tablet 150 mg PO DAILY Patient Comments: TAKE 3 TABLETS BY MOUTH ONCE DAILY ropinirole 0.5 mg tablet 0.5 mg PO HS Patient Comments: TAKE 1 TABLET BY MOUTH ONCE DAILY AT BEDTIME Wegovy 2.4 mg/0.75 mL pen injector 2.4 mg SQ WEEKLY Patient Comments: INJECT 1 SYRINGE SUBCUTANEOUSLY ONCE A WEEK azithromycin [Zithromax] 250 mg tablet 250 mg PO UD DOSE PK Qty: 6 0RF Rx Instructions: Take two (2) tablets today, then one (1) tablet days #2 thru #5 benzonatate 100 mg capsule 100 mg PO TIDP PRN (Reason: Cough) Qty: 30 0RF methylprednisolone 4 mg Tablets,Dose Pack 4 mg PO DIRECTED 6 Days Qty: 21 0RF Rx Instructions: Take 1 pack as directed for 6 days Referrals Follow up/Referrals: Femi Soriano MD [Primary Care Provider] - See instructions Activity Restrictions/Add. Instructions Additional Instructions/Restrictions: Please take the oral antibiotic as directed. Please follow-up with your PCP within 3 to 5 days. Increase your fluid intake. Eat a bland diet. Return to the ED for worsening of condition. Clinical Impressions Clinical Impression: Diverticulitis Instructions Patient Instructions: DI for Diverticulitis Print Language Print Language: Guamanian Discharge ED Provider: Luisito Rajan General Adult HPI General Chief complaint: Abdominal Pain Stated complaint: severe lower left abd pain, nausea, back pain Time Seen by Provider: 09/27/24 15:43 History of Present Illness HPI narrative: Patient is a 49-year-old female PMHx anxiety who presents to the ED for complaints of left lower quadrant abdominal pain and nausea. Patient states that her symptoms started Tuesday night and have been intermittent, however over the past 24 hours have progressed to constant and worsening of left lower quadrant pain. Related Data Home Medications ?Medication ?Instructions ?Recorded ?Confirmed sertraline 50 mg tablet 150 mg PO DAILY Anxiety 02/27/22 07/06/24 ropinirole 0.5 mg tablet 0.5 mg PO HS 06/06/24 07/06/24 semaglutide (weight loss) 2.4 2.4 mg SQ WEEKLY 06/06/24 07/06/24 mg/0.75 mL subcutaneous pen injector (Wegovy) Previous Rx's ?Medication ?Instructions ?Recorded azithromycin 250 mg tablet 250 mg PO UD DOSE PK #6 tabs 07/06/24 (Zithromax) benzonatate 100 mg capsule 100 mg PO TIDP PRN Cough #30 caps 07/06/24 methylprednisolone 4 mg tablets in 4 mg PO DIRECTED 6 days #21 tabs 07/06/24 a dose pack amoxicillin 875 mg-potassium 1 tab PO BID #20 tabs 09/27/24 clavulanate 125 mg tablet Allergies Allergy/AdvReac Type Severity Reaction Status Date / Time doxycycline Allergy Verified 10/03/23 12:19 [facility] Disclaimer: The information contained in this section may have been updated after the patient was seen, as this information can be updated by other users. Medical History (Updated 09/27/24 @ 19:16 by Archana Hernández APRN) Ovarian cyst Depression Anxiety Surgical History Hx of arthroscopy of knee History of tonsillectomy History of section History of cholecystectomy Social History Smoking Status: Never smoker alcohol intake: never current occupational status: other Travel in the last 8 weeks: None Have you lived/traveled outside [place] in past 30 days?: No Contact w/someone who lives/traveled outside [place] past 30 days?: No Exposure to someone with infectious disease in past 14 days?: No Do you have a fever (greater than 100.4 F or 38 C)?: No Have you tested positive for COVID-19: No Exposed to someone with COVID-19 in past 14 days?: No Do you have a sore throat?: No Do you have a cough?: No Do you have any weakness?: No Do you have any diarrhea?: No Are you experiencing any unusual bleeding?: No Do you have any muscle aches/pain?: No Do you have any abdominal pain?: Yes Are you experiencing loss of taste or smell?: No ROS Obtained: Yes Systems reviewed as appropriate & no additional complaints except as documented Physical Exam General General appearance: alert and in no apparent distress Head Head exam: atraumatic and normocephalic Eye Eye exam: Present normal appearance and PERRL ENT ENT exam: Present normal exam Neck Neck exam: Present normal inspection Chest Chest inspection: Present normal inspection and symmetric chest wall rise; Absent tenderness Respiratory Respiratory exam: Present normal lung sounds bilaterally Cardiovascular Cardiovascular exam: Present regular rate Abdominal Exam Abdominal exam: Present soft, tenderness (LLQ) and normal bowel sounds Extremities Exam Extremities exam: Present normal inspection and full ROM Back Exam Back exam: Present normal inspection and full ROM Neurological Exam Neurological exam: Present alert and oriented X3 Psychiatric Psychiatric exam: Present normal affect and normal mood Skin Skin exam: Present warm and dry Medical Decision Making Medical Records Screening: Per USPSTF and CDC recommendations, given the prevalence of disease in our region, it is our hospital?s policy to screen for HIV and viral Hepatitis for all patients aged 18 and over and those with ongoing risk factors. [place]re[place] Inquiry Pt receiving controlled substance: No Vital Signs: 09/27/24 15:39 09/27/24 15:52 09/27/24 16:15 Temperature 98.1 F Temperature Source Oral Pulse Rate 74 71 Pulse Rate [Left Radial] 73 Respiratory Rate 13 Blood Pressure 117/71 117/72 Blood Pressure [Right Arm] 117/71 Blood Pressure Mean Blood Pressure Mean [Right Arm] 86 02 Sat by Pulse Oximetry 95 96 98 Oxygen Delivery Method Room Air 09/27/24 16:30 09/27/24 17:00 09/27/24 17:30 Temperature Temperature Source Pulse Rate 68 69 66 Pulse Rate [Left Radial] Respiratory Rate Blood Pressure 118/70 119/73 109/68 L Blood Pressure [Right Arm] Blood Pressure Mean Blood Pressure Mean [Right Arm] 02 Sat by Pulse Oximetry 98 97 98 Oxygen Delivery Method 09/27/24 18:00 09/27/24 18:30 09/27/24 19:18 Temperature 97.9 F Temperature Source Pulse Rate 92 H 74 72 Pulse Rate [Left Radial] Respiratory Rate 20 Blood Pressure 123/79 114/76 110/70 Blood Pressure [Right Arm] Blood Pressure Mean 93 Blood Pressure Mean [Right Arm] 02 Sat by Pulse Oximetry 97 98 Oxygen Delivery Method Room Air Room Air Room Air Lab Data Lab Results 09/27/24 15:39: Urine Color Yellow, Urine Appearance Slightly cloudy, Urine pH 6.0, Ur Specific [place] >= 1.030, Urine Protein Negative, Urine Glucose (UA) Negative, Urine Ketones Negative, Urine Blood Negative, Urine Nitrate Negative, Urine Bilirubin Negative, Urine Urobilinogen 0.2, Ur Leukocyte Esterase Negative, Urine RBC 3-5, Urine WBC Occasional, Ur Squamous Epith Cells 10-20, Calcium Oxalate Crystal Trace, Urine Bacteria 2+, Urine Mucus 3+ 09/27/24 16:06: WBC 4.4 L, RBC 4.34, Hgb 13.5, Hct 39.1, MCV 90.1, MCH 31.1, MCHC 34.5, RDW 12.9, Plt Count 194, MPV 9.8, Neut % (Auto) 46.2, Lymph % (Auto) 43.4, [place] % (Auto) 6.1, Eos % (Auto) 3.6, Baso % (Auto) 0.7, Neut # (Auto) 2.0, Lymph # (Auto) 1.9, [place] # (Auto) 0.3, Eos # (Auto) 0.2, Baso # (Auto) 0.0, Sodium 138, Potassium 4.4, Chloride 106, Carbon Dioxide 27, Anion Gap 9.4, BUN 12, Creatinine 0.80, Estimated Creat Clear 117, Estimated GFR 76, Est GFR ( Amer) 92, Glucose 96, Calcium 9.3, Total Bilirubin 0.6, AST 32, ALT 17, Alkaline Phosphatase 66, Total Protein 7.5, Albumin 4.5, Globulin 3.0, Albumin/Globulin Ratio 1.5, Lipase 274, HCG, Quant 9 H 09/27/24 16:06 09/27/24 16:06 Orders (Tests/Meds): ED MEDICATIONS Discontinued Medications Generic Name Dose Route Start Last Admin Trade Name Freq PRN Reason Stop Dose Admin Amoxicillin/Clavulanate Potassium 1 each 09/27/24 19:18 Amoxicillin/Clavulanate Potassium 875/125mg Tablet PO 09/27/24 19:19 ONCE ONE Hydromorphone HCl 1 mg 09/27/24 18:27 09/27/24 18:34 Hydromorphone 2mg/Ml Syringe IV 09/27/24 18:28 1 mg ONCE ONE Administration Hydromorphone HCl 0.5 mg 09/27/24 19:18 Hydromorphone 2mg/Ml Syringe IV 09/27/24 19:19 ONCE ONE Sodium Chloride 1,000 mls @ 999 mls/hr 09/27/24 15:54 09/27/24 16:12 Sod Chlor 0.9% 1000ml Bag IV 09/27/24 16:54 999 mls/hr .Q1H1M ONE Administration Iopamidol 75 ml 09/27/24 17:54 09/27/24 17:55 Iopamidol-370 (76%);100ml Bottle IV 09/27/24 17:55 75 ml ONCE ONE Administration Morphine Sulfate 4 mg 09/27/24 17:37 09/27/24 17:43 Morphine 4mg/Ml Syringe IV 09/27/24 17:38 4 mg ONCE ONE Administration Ondansetron HCl 4 mg 09/27/24 15:53 09/27/24 16:12 Ondansetron 4mg/2ml Vial IV 09/27/24 15:54 4 mg ONCE ONE Administration Sodium Chloride 10 ml 09/27/24 17:54 09/27/24 17:55 Sodium Chloride 0.9% 10ml Syr (Rad Only) IV 09/27/24 17:55 10 ml ONCE ONE Administration ORDERS Category Date Time Status CT abdomen pelvis w con Stat Cat Scan 09/27/24 17:37 Completed CBC w/Auto Diff [Complete Blood Count Auto Diff] Stat Lab 09/27/24 16:06 Completed CMP [Comprehensive Metabolic Panel] Stat Lab 09/27/24 16:06 Completed HCG,Quantitative Stat Lab 09/27/24 16:06 Completed Lipase Stat Lab 09/27/24 16:06 Completed UA [Urinalysis and Microscopic] Stat Lab 09/27/24 15:39 Completed Urinalysis and Microscopic Stat Lab 09/27/24 15:57 Ordered Urine Culture Stat Micro 09/27/24 15:39 Received Medical Decision Narrative: In summary, patient is a 49-year-old female PMHx anxiety who presents to the ED for complaints of left lower quadrant abdominal pain and nausea. Patient states that her symptoms started Tuesday night and have been intermittent, however over the past 24 hours have progressed to constant and worsening of left lower quadrant pain. Patient states she took a Zofran today, has not been vomiting however remains nauseous. Reports she has had a cholecystectomy and . States that today she has developed bilateral lower back pain. She attributes her back pain to lifting heavy trash yesterday. Last BM today & normal. Denies any additional complaints at this time. Denies fever, chills, body aches, headache, visual disturbances, chest pain, shortness of breath, vomiting, diarrhea, dysuria, decreased urination. Upon initial evaluation in the ED patient is alert, oriented and cooperative. She is hemodynamically stable. Her physical exam is unremarkable. Her abdomen is soft and nontender. No CVA tenderness. Differential diagnosis include appendicitis, UTI, sepsis, pyelonephritis, renal calculi, diverticulitis, mesenteric adenitis, among others. Will proceed with labs, IV fluids, IV Zofran, urinalysis. Pending labs, considering CT scan of the abdomen pelvis. CBC unremarkable for any leukocytosis, stable H&H. CMP unremarkable for any actionable abnormalities, hCG 9. Urinalysis unremarkable for any infection, squamous cells, mucus present. After lab results, patient's left lower quadrant abdominal pain worsened while in the ED. Decision to proceed with CT scan made at this time CT scan of the abdomen and pelvis remarkable for diverticulosis without evidence of diverticulitis. Due to physical exam findings and patient's pain, will proceed to treat for diverticulitis. Discussed with patient that we will treat with Augmentin, 1 dose of Augmentin given in the ED due to patient's pharmacy being closed tonight. She states she has had diverticulitis in the past. I reviewed discharge instructions with her. Advised her to increase her fluid intake, follow-up with primary care provider within 7 days. We discussed return precautions to the ED and patient and family members verbalized understanding. Critical Care Critical Care Time Critical Care Time: No
[2024-09-27 16:08] LABS: Calcium Oxalate Crystals,Urine Trace /lpf; WBC,Urine Occasional #/hpf (0-3)
[2024-09-27 16:09] LABS: Bacteria,Urine 2+ /lpf; Mucus,Urine 3+ /lpf
[2024-09-27] MEDS: ONDANSETRON 4MG/2ML VIAL 4 MG IV (16:12)
[2024-09-27] MEDS: 0.9 % SODIUM CHLORIDE 1000ML 1,000 ML 999 ML IV (16:12)
[2024-09-27 16:19] LABS: Basophils % 0.7 % (0.1-2.0); Eosinophils # 0.2 K/mm3 (0.0-0.4); Eosinophils % 3.6 % (0.1-12.0); Hematocrit 39.1 % (37.0-47.0); Hemoglobin 13.5 g/dL (12.2-16.2); Lymphocytes # 1.9 K/mm3 (0.7-4.5); Lymphocytes % 43.4 % (10-50); Mean Corpuscular HGB Conc 34.5 g/dL (31.8-35.4); Mean Corpuscular Hemoglobin 31.1 pg (27.0-31.2); Mean Corpuscular Volume 90.1 fl (81-99); Mean Platelet Volume 9.8 fl (7.4-10.4); Monocytes # 0.3 K/mm3 (0.1-1.0); Monocytes % 6.1 % (1.7-9.3); Neutrophils % 46.2 % (37.0-80.0); Platelet Count 194 K/mm3 (142-424); Red Blood Count 4.34 M/mm3 (4.20-5.40); Red Cell Distribution Width 12.9 % (11.5-17.5); White Blood Count 4.4 K/mm3 (4.8-10.8)
[2024-09-27 16:33] LABS: Albumin Level 4.5 g/dl (3.5-5.0); Chloride 106 mmol/L (98-107); Potassium 4.4 mmoL/L (3.5-5.1); Sodium 138 mmol/L (136-145)
[2024-09-27 16:36] LABS: Alanine Aminotransferase 17 U/L (12-78); Albumin/Globulin Ratio 1.5 (1.1-1.8); Alkaline Phosphatase 66 U/L (38-126); Anion Gap 9.4 mEq/L (5-15); Aspartate Amino Transferase 32 U/L (14-36); Bilirubin,Total 0.6 mg/dl (0.2-1.3); Blood Urea Nitrogen 12 mg/dl (7-17); Calcium 9.3 mg/dl (8.4-10.2); Carbon Dioxide 27 mmol/L (22.0-30.0); Creatinine Clearance Estimated 117 mL/min (50-200); Estimated Glomerular Filt Rate 76 ml/min (>60); GFR (African American) 92 ML/MIN (>60); Glucose 96 mg/dl (74-100); Lipase 274 U/L (23-300); Total Protein,Serum 7.5 g/dl (6.3-8.2)
[2024-09-27 16:52] LABS: HCG,Quantitative 9 mIU/ml (0-5.42)
--- NOTE | 2024-09-27 17:37 | CT_ITS ---
PROCEDURE INFORMATION: Exam: CT Abdomen And Pelvis With Contrast Exam date and time: 09/27/2024 5:52 PM Age: 49 years old Clinical indication: Abdominal pain; Localized; Left lower quadrant (llq); Additional info: Llq abd pain TECHNIQUE: Imaging protocol: Computed tomography of the abdomen and pelvis with contrast. Radiation optimization: All CT scans at this facility use at least one of these dose optimization techniques: automated exposure control; mA and/or kV adjustment per patient size (includes targeted exams where dose is matched to clinical indication); or iterative reconstruction. Contrast material: ISOVUE; Contrast volume: 75 ml; Contrast route: IV; COMPARISON: CT ANGIO ABDOMEN PELVIS 13/10/2022 12:48 FINDINGS: Lungs: Mild atelectasis and/or scarring. Liver: Normal. No mass. Gallbladder and biliary ducts: Cholecystectomy. Pancreas: Normal. No ductal dilation. Spleen: Normal. No splenomegaly. Adrenal glands: Normal. No mass. Kidneys and ureters: Normal. No hydronephrosis. Stomach and bowel: Distal colon diverticulosis. No colonic wall thickening or pericholecystic fluid. Appendix: No evidence of appendicitis. Intraperitoneal space: Unremarkable. No free air. No significant fluid collection. Vasculature: Unremarkable. No abdominal aortic aneurysm. Lymph nodes: Unremarkable. No enlarged lymph nodes. Urinary bladder: Unremarkable as visualized. Reproductive: Unremarkable as visualized. Bones/joints: Mild degenerative changes of the spine. Soft tissues: Chronic appearing approximately 2 cm transverse diastasis of the anterior abdominal wall, with associated small fat containing umbilical hernia. Partially visualized fatty mass in the left anterior thigh musculature; probable lipoma. IMPRESSION: 1. Distal colonic diverticulosis without CT evidence of diverticulitis. 2. Additional chronic/nonemergent findings as detailed above.
[2024-09-27] MEDS: MORPHINE 4MG/ML SYRINGE 4 MG IV (17:43)
[2024-09-27] MEDS: SODIUM CHLORIDE 0.9% 10ML SYR (RAD ONLY) 10 ML IV (17:55)
[2024-09-27] MEDS: IOPAMIDOL-370 (76%);100ML BOTTLE 75 ML IV (17:55)
[2024-09-27] MEDS: HYDROMORPHONE 2MG/ML SYRINGE 1 MG IV (18:34)
[2024-09-27] MEDS: AMOXICILLIN/CLAVULANATE POTASSIUM 875/125MG TABLET 1 EACH PO (19:24)
[2024-09-27] MEDS: HYDROMORPHONE 2MG/ML SYRINGE 0.5 MG IV (19:24)
== END 2024-09-27 19:35 | disposition home or self-care (01) ==
PROVIDERS: Nurse Practitioner; Emergency Provider Student in an Organized Health Care Education/Training Program; PCP Family Medicine
DX: K57.92 Diverticulitis of intestine, part unspecified, without perforation or abscess without bleeding (principal); R10.32 Left lower quadrant pain; R11.0 Nausea
CPT/HCPCS: 74177; 80053; 81001; 83690; 84702; 85025; 87086; 96361; 96374; 96375; 96376; 99284; J1171; J2270; J2405; J7030; Q9967